=== PATIENT | male | born 1940 | race Hispanic/Latino ===

== ENCOUNTER 2018-03-24 12:33 | Inpatient (IN) | payer BC, MEDICARE ==
--- NOTE | 2018-03-24 13:18 | ED PDOC ---
Arrival/HPI - General Time Seen by Provider: 03/24/18 12:38 Historian: Patient - History of Present Illness Narrative History of Present Illness (Text): 03/24/18 13:09 Patient is a 77 year old male whose past medical history includes atrial fibrillation, and congestive heart failure, who presents to the Emergency department complaining of skin jaundice, bruising, and low blood pressure. Patient reports that he noticed abdominal ecchymosis for the past few days, and admits to taking Warfarin 3mg due to his Afib. Patient explains that he was in [place] from 03/06-03/16 and during his visit he experienced five days of dark urine, black stool, and diarrhea. He mentions that today he had normal bowel movements with normal stool color. 2 days ago he started feeling weak and saw who found his blood pressure to be 112/65. He saw today and his blood pressure was found to be low. Patient reports that he feels weak and explains that he is able to stand and walk but has difficulty going up flights of stairs. Patient reports that 6 days ago noticed that his eyes were icteric. Patient also notes that a few weeks ago he was diagnosed with gallstones via US with no infection. 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 Patient denies any abdominal pain, lightheadedness, fever, but admits to having a knee problem. 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: Time/Duration: < week Symptom Onset: Gradual Symptom Course: Unchanged Context: Home Past Medical History - Provider Review Nursing Documentation Reviewed: Yes - Infectious Disease Hx of Infectious Diseases: None - Tetanus Immunization Tetanus Immunization: Unknown - Past Medical History Past Medical History: No Previous - Cardiac Hx Pacemaker: No - Pulmonary Hx Respiratory Disorders: (SMOKES CIGARS) - Neurological Hx Paralysis: No - Hematological/Oncological Hx Blood Transfusions: No Hx Blood Transfusion Reaction: No - Musculoskeletal/Rheumatological Hx Musculoskeletal Disorders: No - Psychiatric Hx Emotional Abuse: No Hx Physical Abuse: No Hx Substance Use: No - Past Surgical History Past Surgical History: Non-Contributing - Anesthesia Hx Anesthesia Reactions: No Hx Malignant Hyperthermia: No - Suicidal Assessment Feels Threatened In Home Enviroment: No Family/Social History - Physician Review Nursing Documentation Reviewed: Yes Family/Social History: No Known Family HX Smoking Status: Current Some Days Smoker Hx Alcohol Use: Yes (OCCASIONALLY) Hx Substance Use: No Allergies/Home Meds Allergies/Adverse Reactions: Allergies aspirin Allergy (Verified 03/24/18 20:49) ANAPHYLAXIS Home Medications: Home Meds Medication Instructions Recorded Confirmed Carvedilol [Coreg] 6.25 mg PO BID 04/27/14 03/24/18 Lisinopril [Lisinopril] 5 mg PO DAILY 04/27/14 03/24/18 Warfarin Sodium [Coumadin] 3 mg PO DAILY 04/27/14 03/24/18 Review of Systems - Physician Review All systems were reviewed & negative as marked: Yes - Review of Systems Constitutional: Fatigue. absent: Fevers Gastrointestinal: absent: Abdominal Pain Musculoskeletal: Other (Knee issue) Neurological: Other ((-)lightheadedness) Physical Exam Vital Signs Reviewed: Yes Vital Signs Temp Pulse Resp BP Pulse Ox 03/24/18 18:07 81 28 H 101/70 100 03/24/18 15:45 81 19 119/76 99 03/24/18 14:23 83 18 88/63 L 98 03/24/18 13:56 97.7 F 90 18 90/49 L 99 Temperature: Afebrile Blood Pressure: Hypotensive Pulse: Regular Respiratory Rate: Normal Appearance: Positive for: Well-Appearing Mental Status: Positive for: Alert and Oriented X 3 - Systems Exam Head: Present: Atraumatic, Normocephalic Pupils: Present: PERRL Extroacular Muscles: Present: EOMI Conjunctiva: Present: Icteric Mouth: Present: Moist Mucous Membranes Neck: Present: Normal Range of Motion Respiratory/Chest: Present: Clear to Auscultation, Good Air Exchange. No: Respiratory Distress, Accessory Muscle Use Cardiovascular: Present: Normal S1, S2, Other ((+)irregularly irregular rhythm ) . No: Regular Rate and Rhythm, Murmurs Abdomen: No: Tenderness, Distention, Peritoneal Signs Rectal: Present: Occult Blood, Normal Rectal Tone, Other (brown stool). No: Hemorrhoids Back: Present: Normal Inspection Upper Extremity: Present: Normal Inspection. No: Cyanosis, Edema Lower Extremity: Present: Edema (1+ bilateral lower extremity edema) Neurological: Present: GCS=15, CN II-XII Intact, Speech Normal Skin: Present: Warm, Dry. No: Rashes, Normal Color ((+) Ecchymosis on abdominal wall on lateral side and anterior; (+)skin jaundiced) Psychiatric: Present: Alert, Oriented x 3, Normal Insight, Normal Concentration Medical Decision Making ED Course and Treatment: 03/24/18 13:22 Impression: Patient is a 77 year old male who presents to the Emergency department complaining of feeling tired and jaundice skin and eyes. Differential Diagnosis included but are not limited to: Plan: --Venous blood gas -- Chest X-ray --Abdominal US --Blood and Urine culture --Labs --blood work --Urinalysis -- Reassess and disposition Prior Visits: Notes and results from previous visits were reviewed. Progress Notes: 03/24/18 13:22 EKG shows afib at 88 BPM with LAD and normal intervals. Interpreted by me. 03/24/18 13:35 Chest X-ray shows no acute processes. Interpreted by me. 03/24/18 14:36 Discussed case with , who was made aware of the patient and agrees to take patient under his service and to admit him to ICU. Discussed case with ICU resident . 03/24/18 16:[address] Penaloza ICU attending who just evaluated pt. He recommends telemetry. BP has improved. 119/76. 03/24/2018 15:54 Abdominal Ultrasound IMPRESSION: Dilated gallbladder is identified with cholelithiasis and is otherwise unremarkable dilated CBD without choledocholithiasis. No gross pancreatic head or neck findings. Pancreatic tail obscured by overlying bowel gas. Remainder of the examination appears unremarkable. Dictator: Jimmy Curtis MD 03/24/18 16:[address] Gomes, who recommends CT abd/pelv with IV contrast at this time. He will evaluate patient on consult. I informed Dr. Xiong that patient was stable for telemetry. Dr. Maciel, ICU recommends Telemetry. Accession No. : [id number] Patient Name / ID : CHARO ROSA / [id number] PROCEDURE: CT Abdomen and Pelvis with contrast IMPRESSION: Suspect pancreatic head mass, ill-defined, roughly 3 cm. Further evaluation with multiphasic contrast-enhanced CT or MRCP/ MRI advised. Sharp cut off of distal common bile duct with dilatation of common bile duct up to 16 mm. Cholelithiasis. Distended gallbladder. Intrahepatic biliary dilatation. Nonspecific 2 cm left adrenal mass. Likely adenoma based on size criteria. Small bilateral nonspecific low-density renal masses, possibly cysts. Diverticulosis of descending and sigmoid colon. No evidence - Lab Interpretations Lab Results: 03/24/18 13:47 03/24/18 13:47 Lab Results 03/24/18 13:47: Acetaminophen < 10.0 L 03/24/18 13:47: Lactate Dehydrogenase 658, Total Creatine Kinase 171, Troponin I < 0.01 D, NT-Pro-B Natriuret Pep 2900 H 03/24/18 13:47: Sodium 140, Chloride 102, Potassium 3.3 L, Carbon Dioxide 24, Anion Gap 17, BUN 36 H, Creatinine 1.4, Est GFR ( Amer) 60, Est GFR (Non- Af Amer) 49, Random Glucose 101, Calcium 8.9, Phosphorus 2.3 L, Magnesium 2.3 H , Total Bilirubin 16.1 H, Direct Bilirubin 13.6 H, AST 180 H, ALT 196 H, Alkaline Phosphatase 437 H, Total Protein 7.6, Albumin 3.7, Globulin 3.9, Albumin/Globulin Ratio 1.0 L, Lipase 850 H 03/24/18 13:47: pO2 31, VBG pH 7.30 L, VBG pCO2 48.0, VBG HCO3 23.6, VBG Total CO2 25.1, VBG O2 Sat (Calc) 68.1 H, VBG Base Excess -3.2 L, VBG Potassium 3.2 L , Sodium 136.0, Chloride 102.0, Glucose 100, Lactate 1.2, FiO2 21.0, Venous Blood Potassium 3.2 L 03/24/18 13:47: PT 212.7 H, INR 17.60 H*, APTT 90.1 H 03/24/18 13:47: WBC 7.8, RBC 4.55, Hgb 14.6, Hct 40.2 L, MCV 88.4, MCH 32.1, MCHC 36.3, RDW 16.1 H, Plt Count 144, MPV 11.4 H, Gran % 63.8, Lymph % (Auto) 10.8 L, Pitt % (Auto) 25.0 H, Eos % (Auto) 0.3 L, Baso % (Auto) 0.1, Gran # 4.96 , Lymph # (Auto) 0.8 L, Pitt # (Auto) 1.9 H, Eos # (Auto) 0.0, Baso # (Auto) 0.01, Neutrophils % (Manual) 68, Lymphocytes % (Manual) 9 L, Monocytes % (Manual ) 22 H, Eosinophils % (Manual) 1, Platelet Evaluation Normal I have reviewed the lab results: Yes - RAD Interpretation Narrative RAD Interpretations (Text): 03/25/2018 08:34:19 CT Abdomen and Pelvis with contrast FINDINGS: LOWER THORAX: Unremarkable. LIVER: Normal size, contour and attenuation. Intra and extrahepatic biliary dilatation. No mass. GALLBLADDER AND BILE DUCTS: Gallbladder distended. Cholelithiasis. No mural thickening or pericholecystic fluid. Dilatation of the common bile duct up to 16 mm diameter. There is sharp cut off of the distal common bile duct at the level of the ampulla. Possible pancreatic neoplasm versus ampullary neoplasm versus stricture. Further evaluation advised with MRCP/MRI PANCREAS: Suspect pancreatic head mass 3 cm. Recommend further evaluation with multiphasic contrast enhanced CT or gadolinium enhanced MRI. No pancreatic ductal dilatation. SPLEEN: Unremarkable. ADRENALS: 2 cm left adrenal mass, 34 Hounsfield units attenuation postcontrast. Nonspecific. Likely adrenal adenoma based on size criteria alone. No right adrenal mass. KIDNEYS AND URETERS: Small bilateral nonspecific low-attenuation masses, possibly cysts but too small to characterize. No calculus or hydronephrosis. VASCULATURE: Unremarkable. No aortic aneurysm. BOWEL: Extensive diverticulosis of the descending and sigmoid colon without evidence of diverticulitis. No bowel obstruction. No other abnormal bowel loops. APPENDIX: Normal appendix. PERITONEUM: Unremarkable. No free fluid. No free air. LYMPH NODES: Unremarkable. No enlarged lymph nodes. Of diverticulitis. Preliminary interpretation of this examination was reported by [email or web address] at 8:22 p.m. on 03/24/2018. There is concurrence of this report with the preliminary interpretation. BLADDER: Unremarkable. REPRODUCTIVE: Normal prostate BONES: No acute fracture. OTHER FINDINGS: None. IMPRESSION: Suspect pancreatic head mass, ill-defined, roughly 3 cm. Further evaluation with multiphasic contrast-enhanced CT or MRCP/ MRI advised. Sharp cut off of distal common bile duct with dilatation of common bile duct up to 16 mm. Cholelithiasis. Distended gallbladder. Intrahepatic biliary dilatation. Nonspecific 2 cm left adrenal mass. Likely adenoma based on size criteria. Small bilateral nonspecific low-density renal masses, possibly cysts. Diverticulosis of descending and sigmoid colon. No evidence Radiology Orders: 03/24/18 ABDOMEN COMPLETE [US] Stat 03/24/18 13:11 CHEST PORTABLE [RAD] Stat Parts Inspector: ED Physician, Radiologist - EKG Interpretation Interpreted by ED Physician: Yes Type: 12 lead EKG - Medication Orders Current Medication Orders: Sodium Chloride (Sodium Chloride 0.9%) 1,000 mls @ 100 mls/hr IV .Q10H [facility] Last Admin: 03/25/18 09:47 Dose: Ondansetron HCl (Zofran Inj) 4 mg IVP Q4H PRN PRN Reason: Nausea/Vomiting Pantoprazole Sodium (Protonix Inj) 40 mg IVP Q12 [facility] Last Admin: 03/25/18 10:22 Dose: 40 mg IVP Administration Document 03/25/18 10:22 CD (Rec: 03/25/18 10:22 CD [id number]) Charges for Administration # of IVP Administrations 1 Discontinued Medications Alprazolam (Xanax) 0.5 mg PO ONCE ONE PRN Reason: Protocol Stop: 03/25/18 09:01 Last Admin: 03/25/18 09:11 Dose: 0.5 mg Behavioural Document 03/25/18 09:11 CD (Rec: 03/25/18 09:11 CD [id number]) Maintenance Maintenance Dose Yes Re-Assess: Reassess Psych Meds Document 03/25/18 10:11 CD (Rec: 03/25/18 10:22 CD [id number]) Reassess Psych Med Effective Sodium Chloride (Sodium Chloride 0.9%) 500 mls @ 100 mls/hr IV .Q5H [facility] Last Admin: 03/25/18 00:06 Dose: Sodium Chloride (Sodium Chloride 0.9%) 500 mls @ 999 mls/hr IV .Q31M STA Stop: 03/24/18 14:57 Last Admin: 03/24/18 13:50 Dose: 999 mls/hr eMAR Start Stop Document 03/24/18 13:50 OCS (Rec: 03/24/18 15:42 OCS [id number]) Intravenous Solution Start Date 03/24/18 Start Time 13:50 End Date 03/24/18 End time 14:20 Total Infusion Time 30 Phytonadione 10 mg/ Sodium (Chloride) 51 mls @ 100 mls/hr IV ONCE ONE Stop: 03/24/18 15:24 Last Admin: 03/24/18 15:43 Dose: 100 mls/hr eMAR Start Stop Document 03/24/18 15:43 OCS (Rec: 03/24/18 15:43 OCS [id number]) Intravenous Solution Start Date 03/24/18 Start Time 15:43 End Date 03/24/18 End time 16:13 Total Infusion Time 30 Pantoprazole Sodium (Protonix Inj) 80 mg IVP STAT STA Stop: 03/24/18 15:12 Last Admin: 03/24/18 15:46 Dose: 80 mg IVP Administration Document 03/24/18 15:46 OCS (Rec: 03/24/18 15:46 OCS [id number]) Charges for Administration # of IVP Administrations 1 Potassium Chloride (K-Dur 20 Meq Er Tab) 40 meq PO STAT STA Stop: 03/24/18 14:15 Last Admin: 03/24/18 15:45 Dose: 40 meq - Scribe Statement The provider has reviewed the documentation as recorded by the Mary Tavarez Provider Scribe Attestation: All medical record entries made by the Mary were at my direction and personally dictated by me. I have reviewed the chart and agree that the record accurately reflects my personal performance of the history, physical exam, medical decision making, and the department course for this patient. I have also personally directed, reviewed, and agree with the discharge instructions and disposition. Disposition/Present on Arrival - Present on Arrival Any Indicators Present on Arrival: No History of DVT/PE: No History of Uncontrolled Diabetes: No Urinary Catheter: No History Surgical Site Infection Following: None - Disposition Have Diagnosis and Disposition been Completed?: Yes Diagnosis: Jaundice, GI bleed, Congestive heart failure Disposition: HOSPITALIZED Disposition Time: 14:00 Patient Plan: Admission Condition: GUARDED
[2018-03-24 14:03] LABS: VENOUS BLOOD GAS BASE EXCESS -3.2 mmol/L (0.0-2.0); VENOUS BLOOD GAS PO2 31 mm/Hg (30-55)
[2018-03-24 14:11] LABS: ALBUMIN 3.7 g/dL (3.0-4.8); BILIRUBIN,DIRECT 13.6 mg/dL (0.0-0.4); CALCIUM 8.9 mg/dL (8.4-10.5)
[2018-03-24] MEDS ORDERED: Potassium Chloride 20 mEq ER Tab PO STA (14:14)
[2018-03-24 14:16] LABS: BASO # 0.01 K/mm3 (0.0-2.0); BASO % 0.1 % (0.0-3.0); EOS % 0.3 % (1.5-5.0); GRAN # 4.96 (1.4-6.5); GRAN % 63.8 % (50.0-68.0); HEMOGLOBIN 14.6 g/dL (14.0-18.0); LYMPH # 0.8 (1.2-3.4); LYMPH % 10.8 % (22.0-35.0); MEAN CELL VOLUME 88.4 fl (80.0-105.0); MEAN CORPUSCULAR HEMOGLOBIN 32.1 pg (25.0-35.0); MEAN CORPUSCULAR HGB CONC 36.3 g/dl (31.0-37.0); MEAN PLATELET VOLUME 11.4 fl (7.0-11.0); MONO # 1.9 (0.1-0.6); PLATELET COUNT 144 10^3/uL (120.0-450.0); RBC 4.55 10^6/uL (3.5-6.1); RED CELL DISTRIBUTION WIDTH 16.1 % (11.5-14.5); WHITE BLOOD COUNT 7.8 10^3/ul (4.5-11.0)
[2018-03-24 14:18] LABS: PARTIAL THROMBOPLASTIN TIME 90.1 Seconds (25.1-36.5); PROTHROMBIN TIME 212.7 SECONDS (9.4-12.5)
[2018-03-24 14:19] LABS: INR 17.6 (0.93-1.08)
[2018-03-24] MEDS ORDERED: Phytonadione 10 MG in Sodium Chloride 0.9% 50 ML IV ONE ×2 (14:22→14:54)
[2018-03-24] MEDS ORDERED: Sodium Chloride 0.9% 500 ML IV STA (14:27)
[2018-03-24 14:42] LABS: EOSINOPHIL 1 % (0.0-3.0); LYMPHOCYTE 9 % (22.0-35.0); MONOCYTE 22 % (1.0-6.0); NEUTROPHIL 68 % (50.0-70.0)
[2018-03-24 14:43] LABS: PLATELET ESTIMATE NORMAL (NORMAL)
--- NOTE | 2018-03-24 15:30 | CP.PCM.CON ---
<Elaina Palma - Last Filed: 03/24/18 17:35> History of Present Illness - History of Present Illness History of Present Illness: PGY-2 for . ICU consult: GI bleed, hematuria, jaundice Mr Lambert, 77M, PMHx a-fib on comadin, came in for GI bleed, hematuria, jaundice, brusing in belly and generalize weakness. Pt and flew to [place] on 03/06/18 to 03/16/18 (last Thursday). The last time he checked his INR was in January, prior to the trip. During the trip, he started to have diarrhea, dark color stool. After he flew back from the trip, weakness progresses and he felt SOB on walking up a flight of stairs. He was noticed that he became jaundice. He continued to have melanoic diarrhea, now with bright red urine. His appetite decreases and U/O decreases. Dnies recent antibiotics. (+) Took NSAIDs/Tylenol 4 pills in past 3 days. 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 drinks 3-4 gin/wine per week Denies drug All - Aspirin Med - reviewed Past Patient History - Infectious Disease Hx of Infectious Diseases: None - Tetanus Immunizations Tetanus Immunization: Unknown - Past Social History Smoking Status: Current Some Days Smoker - CARDIAC Hx Pacemaker: No - PULMONARY Hx Respiratory Disorders: (SMOKES CIGARS) - NEUROLOGICAL Hx Paralysis: No - HEMATOLOGICAL/ONCOLOGICAL Hx Blood Transfusions: No Hx Blood Transfusion Reaction: No - MUSCULOSKELETAL/RHEUMATOLOGICAL Hx Musculoskeletal Disorders: No - GASTROINTESTINAL Hx Gall Bladder Disease: Yes - PSYCHIATRIC Hx Emotional Abuse: No Hx Physical Abuse: No Hx Substance Use: No - SURGICAL HISTORY Hx Surgeries: No - ANESTHESIA Hx Anesthesia Reactions: No Hx Malignant Hyperthermia: No Meds Allergies/Adverse Reactions: Allergies Allergy/AdvReac Type Severity Reaction Status Date / Time aspirin Allergy ANAPHYLAXIS Verified 03/24/18 17:10 - Medications Medications: Current Medications Sodium Chloride (Sodium Chloride 0.9%) 500 mls @ 100 mls/hr IV .Q5H [facility] Physical Exam - Constitutional Appears: No Acute Distress - Head Exam Head Exam: ATRAUMATIC, NORMAL INSPECTION, NORMOCEPHALIC - Eye Exam Eye Exam: EOMI, Normal appearance, PERRL, Scleral icterus Pupil Exam: NORMAL ACCOMODATION - ENT Exam ENT Exam: Mucous Membranes Moist - Neck Exam Neck exam: Positive for: Normal Inspection Additional comments: excoriation whaley - Respiratory Exam Respiratory Exam: Decreased Breath Sounds (b/l lung bases), Clear to Auscultation Bilateral, NORMAL BREATHING PATTERN. absent: Rales, Rhonchi, Wheezes - Cardiovascular Exam Cardiovascular Exam: Irregular Rhythm, +S1, +S2. absent: Bradycardia, Tachycardia - GI/Abdominal Exam GI & Abdominal Exam: Normal Bowel Sounds, Soft. absent: Distended, Firm, Guarding, Rebound, Rigid, Tenderness - Rectal Exam Additional comments: blood in vaginal area, small amount - Extremities Exam Extremities exam: Positive for: normal capillary refill, pedal edema (2+ pitting with stasis dermatitis), pedal pulses present. Negative for: calf tenderness - Back Exam Additional comments: ecchymosis L flank, lateral, posterior, mid sacral - Neurological Exam Neurological exam: Alert, CN II-XII Intact, Oriented x3 - Psychiatric Exam Psychiatric exam: Normal Affect, Normal Mood - Skin Skin Exam: Dry, Warm Additional comments: ecchymosis (see back exam) Results - Vital Signs Recent Vital Signs: Last Vital Signs Temp 97.7 F 03/24/18 13:56 Pulse 83 03/24/18 14:23 Resp 18 03/24/18 14:23 BP 88/63 L 03/24/18 14:23 Pulse Ox 98 03/24/18 14:23 - Labs Result Diagrams: 03/24/18 13:47 03/24/18 13:47 Assessment & Plan - Assessment and Plan (Free Text) Plan: Supratherapeutic INR at 17.6 GI bleed, upper vs lower Hematuria Hyper-conjugated bilirubinemia @ 13.6 - due to bleeding AND/OR cholestatic picture? Transaminitis Pro-BNP 2900 Lipase 850, Doubt pancreatitis - does not meet diagnostic criteria MIKEY (Baseline creatinin 1) Hx A-fib Cardiomypathy (EF 20-15% in 2014) CHF exacerbation likely from acute blood loss and increase demand Neuro - AAOx3, maintain nomothermia Pulm - BNP elevated likely CHF exacerbation. Sa 100 on RA Card - hold coumadin. 10 vitamin K. 2 FFP at a time. Recheck Coags after @ 2FFP. transfuse FFP again as needed Will get echocardiogram GI - NPO. Defer decision CT a/p to Dr. Gomes; defer Decision re: protonix gtt vs bid per GI doctor Abd u/s: dilated gallbladder with cholelithiasis. Dilated CBD 10.2mm. - strict i/o. Replete electrolyte as needed. Endo - maintain glucose 140-180 Heme - see card section ID - no active issue pvx - SCD Pt will be admitted to telemetry. Pt does not meet ICU admission requirement: Vital sign stable, no active bleeding, Hb at baseline. Please re-consult as needed. s/r/d/w Dr. Pham <Jimmy Pham - Last Filed: 03/24/18 17:59> Meds - Medications Medications: Current Medications Sodium Chloride (Sodium Chloride 0.9%) 500 mls @ 100 mls/hr IV .Q5H [facility] Last Admin: 03/24/18 15:50 Dose: 100 mls/hr Results - Vital Signs Recent Vital Signs: Last Vital Signs Temp 97.7 F 03/24/18 13:56 Pulse 81 03/24/18 15:45 Resp 19 03/24/18 15:45 BP 119/76 03/24/18 15:45 Pulse Ox 99 03/24/18 15:45 - Labs Result Diagrams: 03/24/18 13:47 03/24/18 13:47 Labs: Laboratory Results - last 24 hr 03/24/18 17:07 Urine Color Dark yellow Urine Appearance Sl cloudy Urine pH 6.0 Ur Specific [place] 1.010 Urine Protein Trace H Urine Glucose (UA) Negative Urine Ketones Negative Urine Blood Negative Urine Nitrate Negative Urine Bilirubin Large H Urine Urobilinogen 0.2 Ur Leukocyte Esterase Negative Urine RBC Negative Urine WBC 2 - 5 Ur Epithelial Cells 3 - 4 Amorphous Sediment Few Urine Bacteria Few Attending/Attestation - Attestation I have personally seen and examined this patient.: Yes I have fully participated in the care of the patient.: Yes I have reviewed all pertinent clinical information: Yes Notes (Text): 03/24/18 17:50 The patient was seen and examined at the bedside. Patient care was discussed with resident Medical records, lab studies were reviewed and management issues were discussed and formulated. Agree with above treatment plans as outlined in 's note with addition of the following: GI bleed \ Coumadin toxicity \ MIKEY \ Afib \ Systolic CHF \ Elevated LFT \ Elevated Lipase -hemodynamic monitoring to maintain MAP>65; currently stable ; f\u repeat Echo -o2 supplementation to maintain Spo2>90 Pao2>60; currently comfortable on room air , speaking full sentences saturating 100% -f\u Bun\Cr and U\o; continue gentle hydration -GI team eval; continue PPi IV ; consider CT A\P -f\u serial LFT; hepatitis panel; f\u Lipase; pt has no abdominal pain on exam -f\u serial H\H ; Hb on admission 14.6 -vitamin K given in ED; transfuse 2 FFP and repeat INR; monitor for fluid overload; consider PCC -NPO diet pending GI eval and aspiration precautions -DVT \ PUD prophylaxis Pt remains hemodynamically stable when examined and is comfortable on room air in no distress. No signs of active acute bleed noted. Pt will not benefit from ICU level of care at this time. Please reconsult if condition changes or necessary CCM time 41
[2018-03-24] MEDS: Sodium Chloride 0.9% 500 ML IV SCH ×2 (15:50→18:50)
--- NOTE | 2018-03-24 15:55 | US ---
HISTORY: h/o GS now jaundice COMPARISON: None. TECHNIQUE: Sonographic evaluation of the abdomen. FINDINGS: LIVER: Measures 15.0 cm. Normal echogenicity of the liver parenchyma. No mass. No intrahepatic bile duct dilatation. GALLBLADDER: Distended but thin walled gallbladder without pericholecystic fluid collection. There is no sonographic Szymanski sign but calculi are seen in the lumen near the neck. Clinically correlate for potential cholecystitis though nothing rather than gallbladder distention is otherwise demonstrated. COMMON BILE DUCT: Measures 10.2 mm. No choledocholithiasis appreciated. PANCREAS: No pancreatic head or neck mass is seen in the bodies unremarkable but the tail is obscured by overlying bowel gas. RIGHT KIDNEY: Measures 10.8cm. Normal echogenicity. No calculus, mass, or hydronephrosis. LEFT KIDNEY: Measures 11.2cm. Normal echogenicity. No calculus, mass, or hydronephrosis. SPLEEN: Normal in size and contour measuring 10.7 cm greatest dimension. No mass. AORTA: No aneurysmal dilatation. IVC: Unremarkable. OTHER FINDINGS: None. IMPRESSION: Dilated gallbladder is identified with cholelithiasis and is otherwise unremarkableDilated CBD without choledocholithiasis. No gross pancreatic head or neck findings. Pancreatic tail obscured by overlying bowel gas. Remainder of the examination appears unremarkable.
[2018-03-24 16:52] LABS: B-TYPE NATRIURETIC PEPTIDE 2900 pg/mL (0-450); TROPONIN I < 0.01 ng/mL
[2018-03-24 17:15] LABS: URINE BILIRUBIN LARGE (NEGATIVE); URINE BLOOD NEGATIVE (NEGATIVE); URINE GLUCOSE (UA) NEGATIVE (NEGATIVE); URINE LEUKOCYTE ESTERASE NEGATIVE Leu/uL (NEGATIVE); URINE PROTEIN TRACE mg/dL (<30 mg/dL); URINE UROBILINOGEN 0.2 E.U./dL (<1 E.U./dL)
[2018-03-24 17:26] LABS: URINE APPEARANCE SL CLOUDY (CLEAR); URINE COLOR DARK YELLOW (YELLOW)
[2018-03-24 17:31] LABS: URINE AMORPHOUS SEDIMENT FEW; URINE BACTERIA FEW (NEG); URINE RBC NEGATIVE /hpf (0-2)
--- NOTE | 2018-03-24 17:59 | RAD ---
HISTORY: Sepsis Patient COMPARISON: 04/24/2014. FINDINGS: LUNGS: The lungs are well inflated and clear. PLEURA: No significant pleural effusion identified, no pneumothorax apparent. CARDIOVASCULAR: Normal. OSSEOUS STRUCTURES: No significant abnormalities. VISUALIZED UPPER ABDOMEN: Normal. OTHER FINDINGS: None. IMPRESSION: No active pulmonary disease.
--- NOTE | 2018-03-24 18:20 | CARD ---
APPROVED REPORT EKG Measurement Heart [id number] <Conclusion> Atrial fibrillation Left axis deviation Low voltage QRS Inferior infarct, age undetermined Possible Anterolateral infarct, age undetermined Abnormal ECG
[2018-03-24 21:17] VITALS: BMI 41.9
[2018-03-24 22:16] LABS: HEMOGLOBIN 13.8 g/dL (14.0-18.0); MEAN CELL VOLUME 88.6 fl (80.0-105.0); MEAN CORPUSCULAR HEMOGLOBIN 32.7 pg (25.0-35.0); MEAN CORPUSCULAR HGB CONC 36.9 g/dl (31.0-37.0); MEAN PLATELET VOLUME 11.3 fl (7.0-11.0); RBC 4.22 10^6/uL (3.5-6.1); RED CELL DISTRIBUTION WIDTH 16.2 % (11.5-14.5); WHITE BLOOD COUNT 8.2 10^3/ul (4.5-11.0)
[2018-03-24] MEDS: Sodium Chloride 0.9% 1,000 ML IV SCH (23:35)
[2018-03-25] MEDS: Sodium Chloride 0.9% 500 ML IV SCH (00:06)
[2018-03-25 06:18] VITALS: RESP 18; O2SAT 96
[2018-03-25 08:03] LABS: BASO # 0.01 K/mm3 (0.0-2.0); BASO % 0.1 % (0.0-3.0); EOS % 0.5 % (1.5-5.0); GRAN # 4.96 (1.4-6.5); GRAN % 57.9 % (50.0-68.0); HEMOGLOBIN 13.4 g/dL (14.0-18.0); LYMPH % 11.9 % (22.0-35.0); MEAN CELL VOLUME 87.8 fl (80.0-105.0); MEAN CORPUSCULAR HEMOGLOBIN 32.1 pg (25.0-35.0); MEAN CORPUSCULAR HGB CONC 36.6 g/dl (31.0-37.0); MEAN PLATELET VOLUME 11.7 fl (7.0-11.0); MONO # 2.5 (0.1-0.6); MONO % 29.6 % (1.0-6.0); RBC 4.17 10^6/uL (3.5-6.1); RED CELL DISTRIBUTION WIDTH 16.1 % (11.5-14.5); WHITE BLOOD COUNT 8.6 10^3/ul (4.5-11.0)
[2018-03-25 08:10] LABS: INR 1.44 (0.93-1.08); PROTHROMBIN TIME 16.7 SECONDS (9.4-12.5)
--- NOTE | 2018-03-25 08:35 | CT ---
PROCEDURE: CT Abdomen and Pelvis with contrast HISTORY: acute jaundice COMPARISON: None. TECHNIQUE: Contrast dose: 146 cc Omnipaque 350 Radiation dose: Total exam DLP = 1194.61 mGy-cm. This CT exam was performed using one or more of the following dose reduction techniques: Automated exposure control, adjustment of the mA and/or kV according to patient size, and/or use of iterative reconstruction technique. FINDINGS: LOWER THORAX: Unremarkable. LIVER: Normal size, contour and attenuation. Intra and extrahepatic biliary dilatation. No mass. GALLBLADDER AND BILE DUCTS: Gallbladder distended. Cholelithiasis. No mural thickening or pericholecystic fluid. Dilatation of the common bile duct up to 16 mm diameter. There is sharp cut off of the distal common bile duct at the level of the ampulla. Possible pancreatic neoplasm versus ampullary neoplasm versus stricture. Further evaluation advised with MRCP/MRI PANCREAS: Suspect pancreatic head mass 3 cm. Recommend further evaluation with multiphasic contrast enhanced CT or gadolinium enhanced MRI. No pancreatic ductal dilatation. SPLEEN: Unremarkable. ADRENALS: 2 cm left adrenal mass, 34 Hounsfield units attenuation postcontrast. Nonspecific. Likely adrenal adenoma based on size criteria alone. No right adrenal mass. KIDNEYS AND URETERS: Small bilateral nonspecific low-attenuation masses, possibly cysts but too small to characterize. No calculus or hydronephrosis. VASCULATURE: Unremarkable. No aortic aneurysm. BOWEL: Extensive diverticulosis of the descending and sigmoid colon without evidence of diverticulitis. No bowel obstruction. No other abnormal bowel loops. APPENDIX: Normal appendix. PERITONEUM: Unremarkable. No free fluid. No free air. LYMPH NODES: Unremarkable. No enlarged lymph nodes. Of diverticulitis. Preliminary interpretation of this examination was reported by [facility] at 8:22 p.m. on 03/24/2018. There is concurrence of this report with the preliminary interpretation. BLADDER: Unremarkable. REPRODUCTIVE: Normal prostate BONES: No acute fracture. OTHER FINDINGS: None. IMPRESSION: Suspect pancreatic head mass, ill-defined, roughly 3 cm. Further evaluation with multiphasic contrast-enhanced CT or MRCP/ MRI advised. Sharp cut off of distal common bile duct with dilatation of common bile duct up to 16 mm. Cholelithiasis. Distended gallbladder. Intrahepatic biliary dilatation. Nonspecific 2 cm left adrenal mass. Likely adenoma based on size criteria. Small bilateral nonspecific low-density renal masses, possibly cysts. Diverticulosis of descending and sigmoid colon. No evidence
[2018-03-25 08:46] LABS: ALBUMIN 3.6 g/dL (3.0-4.8); ALT/SGPT 182 U/L (7-56); AST/SGOT 174 U/L (17-59); BLOOD UREA NITROGEN 27 mg/dL (7-21); CALCIUM 8.9 mg/dL (8.4-10.5); GFR AFRICAN-AMERICAN > 60; GFR NON-AFRICAN AMERICAN > 60
[2018-03-25] MEDS: Sodium Chloride 0.9% 1,000 ML IV SCH (09:47)
--- NOTE | 2018-03-25 11:14 | MRI ---
PROCEDURE: Magnetic Resonance Cholangiopancreatography HISTORY: COMPARISON: 03/24/2018. TECHNIQUE: Multiplanar, multisequence MR images of the abdomen were obtained, including heavily T2 weighted MRCP images of the biliary system. Rotating maximum intensity projection images of the biliary system were generated. FINDINGS: MRCP: Re- demonstration of severe intra and extrahepatic biliary dilatation with common bile duct measuring 17 millimeters in the dakota hepatis. Abrupt transition with lack of visualization of the distal common bile duct extending to the duodenum. LIVER: Unremarkable. GALLBLADDER: Cholelithiasis. SPLEEN: Unremarkable. PANCREAS: No gross pancreatic mass or duct dilatation. ADRENALS: Unremarkable. KIDNEYS: Unremarkable. AORTA: No aneurysm. ASCITES: None. OTHER FINDINGS: None. IMPRESSION: Re- demonstration of severe intra and extrahepatic biliary dilatation with common bile duct measuring 17 millimeters in the dakota hepatis. Abrupt transition with lack of visualization of the distal common bile duct extending to the duodenum. No gross evidence of pancreatic mass. Findings may represent postinflammatory stricture, however, pancreatic mass or biliary mass should be excluded and correlation with ERCP is recommended.
--- NOTE | 2018-03-25 11:14 | HP ---
CHIEF COMPLAINT AND HISTORY OF PRESENT ILLNESS: This is a 77-year-old male, who is coming into the hospital with a past medical history of atrial fibrillation complaining of yellowing of his eyes, black stools, dark urine. The patient has a history of atrial fibrillation and has been on Coumadin. He had gone to see his primary care doctor and his blood pressure was low, so he is advised to come into the hospital for further evaluation. The patient said that 6 days ago, he had gone to Dr. Wallace's office with his and she had noticed that he had jaundice in his eyes. The patient had also gone to [place] about 2 weeks ago and this is where he started noticing the dark urine and black stool. He is also having diarrhea. The patient denies any chest pain. No shortness of breath. No nausea. No abdominal pain. No back pain. No dysuria or frequency. No nocturia. He says that he is able to go up flight of stairs, but he gets short of breath. REVIEW OF SYMPTOMS: All other review of symptoms are within normal limits except that was mentioned. ALLERGIES: TO ASPIRIN. HOME MEDICATIONS: Carvedilol, lisinopril, Coumadin. SOCIAL HISTORY: He was a smoker. He worked in an [employer] company, but he is retired. He drinks alcohol occasionally. He drinks 3-4 gin and wine per week. FAMILY HISTORY: Father had lung cancer and at 65. Mother had coronary artery disease and at 73. PAST MEDICAL HISTORY: Atrial fibrillation, obese with a BMI of 42, CHF with EF of 20-25%. PHYSICAL EXAMINATION: VITAL SIGNS: Temperature is 97.5, pulse of 76, blood pressure is 110/76, respirations 18, O2 saturation is 96%. Height is 5 feet 9. Weight is 284 pounds. BMI is 41.9. GENERAL: The patient lying in bed, uncomfortable, and in no acute distress. HEENT: Atraumatic and normocephalic. Icteric sclerae. Moist mucosa. [place] conjunctivae. No oral lesions. NECK: No JVD, anterior and posterior adenopathy, thyromegaly, or bruits. CARDIOVASCULAR: S1 and S2 regular. No murmur, rubs, or gallop. LUNGS: Clear to auscultation bilaterally. No wheezes, rales, or rhonchi. ABDOMEN: Bowel sounds are positive. Soft, nontender and nondistended. No hepatosplenomegaly. No rebound and no guarding EXTREMITIES: No cyanosis, clubbing, or edema. NEUROLOGIC: No facial asymmetry. Tongue is midline. No uvula deviation. Power is 5/5 upper extremity and lower extremity. Sensation intact in upper extremity and lower extremity. PSYCHIATRIC: He is awake, alert and oriented x3. No anxiety or depression. He has normal affect. GENITOURINARY: No CVA tenderness. VASCULAR: 2+ pulses in the carotid pulses and pedal pulses. SKIN: No erythema or nodules. Yellowing of the skin. SPINE: Shows normal curvature. LABORATORY DATA: White count of 7.8, hemoglobin 14.6, platelet count is 144. His INR is 17, repeat is 1.4. His chemistry shows the potassium is 3.3, his phosphorus is 2.3, his magnesium is 2.3, his AST is 180, ALT is 196, alk phos of 437, his proBNP is 2900. Urine shows blood that is negative, nitrites are negative, bilirubin is large. Toxicology shows a Tylenol level less than 10. Total bilirubin is 16, direct is 13.6. His chest x-ray shows no infiltrates. EKG shows atrial fibrillation with heart rate of 88, low-voltage QRS. Abdominal ultrasound done shows dilated gallbladder with cholelithiasis. ASSESSMENT: 1. Obstructive jaundice. 2. Hypokalemia. 3. Hypophosphatemia. 4. Heme-positive stool. 5. Coagulopathy secondary to Coumadin toxicity. 6. Congestive heart failure, chronic, secondary to systolic dysfunction with ejection fraction of 20-25%. 7. Obese with a body mass index of 42. PLAN: The patient is going to be admitted to the hospital. He has elevated bilirubin. The patient is jaundiced. The etiology is unknown at this point. He had a CAT scan done, the results are pending. The patient was given potassium because of the hypokalemia. The patient was given vitamin K and FFP. His INR is subtherapeutic. He has heme positive stool, so I will hold off on further anticoagulation and antiplatelet therapy. The patient is on Protonix. I did speak to Dr. Gomes regarding the case. The patient has an MRCP that has been ordered as well as a repeat echo. The patient is going to be seen by Dr. Gomes and Dr. Wallace. We will continue to follow closely. The patient does have a significantly enlarged gallbladder. Randal Thompson MD
[2018-03-25 11:31] VITALS: BP 108/76; TEMP 97.8
--- NOTE | 2018-03-25 15:21 | CON ---
DATE: 03/25/2018 CONSULTATION IN GASTROENTEROLOGY REQUESTING PHYSICIAN: Randal Thompson MD. REASON FOR CONSULT: I have been asked to see this 77-year-old male with known history of atrial fibrillation, gallstones, who is admitted to the hospital with jaundice and increasing weakness. He denies any abdominal pain. The patient is on Coumadin for atrial fibrillation. The patient recently returned from a trip to [place] where during the trip he noted hematuria and dark BMs. The patient was noted by his 's oncologist to be jaundiced. He was advised medical followup. He has a history of congestive heart failure with an ejection fraction of 20-25%. Ultrasound of the abdomen performed in the emergency room revealed gallstones and a distended gallbladder. PAST MEDICAL HISTORY: As above. Again, he has a history of atrial fibrillation, congestive heart failure and gallstones. SOCIAL HISTORY: The patient smokes cigars intermittently. He consumes wine and gin on a social basis. FAMILY HISTORY: Notable for diabetes mellitus, lung cancer. REVIEW OF SYSTEMS: Notable for generalized weakness, jaundice and easy bruising. PHYSICAL EXAMINATION: GENERAL: Middle-aged male, appearing icteric, in no acute distress. VITAL SIGNS: Reveal temperature of 97.5, blood pressure 110/76, heart rate 76. HEENT: Reveals sclerae to be icteric. Conjunctivae pink. NECK: Supple. CHEST: Reveals lungs to be clear. HEART: Reveals regular rate and rhythm. ABDOMEN: Obese, soft, nontender. EXTREMITIES: Show no edema. LABORATORY DATA: Reveal on admission to the hospital, white blood cell count of 7.8, hemoglobin of 14.6. Chemistries reveal total bilirubin of 16.1, AST 180, ALT 196, alkaline phosphatase of 437, lipase of 850. CT scan of the abdomen and pelvis shows a dilated common bile duct with abrupt cutoff at the level of the ampulla with suggestion of a 3 cm mass in the head of the pancreas. IMPRESSION: 1. Obstructive jaundice, most likely secondary to a mass in the head of the pancreas. 2. Severe coagulopathy with a PT of 212 and an INR 17.6, which this morning has corrected to 16.7 with an INR of 1.44. RECOMMENDATIONS: 1. MRCP. 2. The patient will need ERCP, EUS and biliary drainage. Jimy Gomes MD [facility] # [id number]
[2018-03-25 15:30] VITALS: PULSE 82
--- NOTE | 2018-03-25 16:37 | CP.PCM.CON ---
<Imani Mcgarry - Last Filed: 03/25/18 16:36> History of Present Illness - History of Present Illness History of Present Illness: Seen and examined at bedside, chart reviewed. Request for GI consult as per Dr. Gomes for ERCP. HPI: This is a 77 morbidly obese male with a PMH or Atrial Fibrillation on Coumadin, CHF, EF or 20-25%, Gallstones came to the ER for c/o feeling weak and jaundice, the patient was noted by the 's oncologist for appearing jaundice and recommended evaluation. Patient also recently returned from [place] and had hematuria and dark BM during his trip. He was found to have an INF of 17 on admission s/p FFP. On evaluation in the ER he had an abdominal US and found to have multiple gallstones and distended gallbladder. MRCP was done on this admission and noted to have intra and extrahepatic dilation with CBD 17mm in the dakota hepatis. No pancreatic mass but findings may represent post inflammatory stricture but pancreatic mass or biliary mass should be excluded. Recommend ERCP. Currently he denies N/V, abdominal pain, No sob or CP. PMH: Atrial Fibrillation, CHF, poor EF 20-25%, morbildy obese,gallstones Allergies: aspirin MEDS: reviewed as per MAR FHX: noncontributory at this time Social HX: smokes cigars, drink wine rudi gin socially, no illicit drugs ROS: systems reviewed with positive findings, see HPI Past Patient History - Infectious Disease Hx of Infectious Diseases: None - Tetanus Immunizations Tetanus Immunization: Unknown - Past Social History Smoking Status: Former Smoker - CARDIAC Hx Cardiac Disorders: Yes (CAD) Hx Cardia Arrhythmia: Yes Hx Circulatory Problems: Yes Hx Congestive Heart Failure: Yes Hx Hypercholesterolemia: Yes Hx Hypertension: Yes Hx Pacemaker: No - PULMONARY Hx Respiratory Disorders: Yes (SMOKED CIGARS 10/YR) - NEUROLOGICAL Hx Neurological Disorder: No - HEENT Hx HEENT Problems: No - RENAL Hx Chronic Kidney Disease: No - ENDOCRINE/METABOLIC Hx Endocrine Disorders: No - HEMATOLOGICAL/ONCOLOGICAL Hx Blood Disorders: No - INTEGUMENTARY Hx Dermatological Problems: Yes (JAUNDICED 03-24-18) Other/Comment: 03-24-18 MULTIPLE BRUISING,BILATERAL LE DARKENED BROWN SKIN DISCOLORATION EDEMA +1,SKIN TIGHT. - MUSCULOSKELETAL/RHEUMATOLOGICAL Hx Musculoskeletal Disorders: No Hx Falls: No - GASTROINTESTINAL Hx Gastrointestinal Disorders: Yes (BLOODY STOOLS) Hx Gall Bladder Disease: Yes (GALLSTONES,CHOLELITHIASIS) - GENITOURINARY/GYNECOLOGICAL Hx Genitourinary Disorders: Yes Hx Hematuria: Yes (03-24-18) - PSYCHIATRIC Hx Psychophysiologic Disorder: No Hx Emotional Abuse: No Hx Physical Abuse: No Hx Substance Use: No - SURGICAL HISTORY Hx Surgeries: Yes (CARD CATH.) - ANESTHESIA Hx Anesthesia Reactions: No Hx Malignant Hyperthermia: No Meds Allergies/Adverse Reactions: Allergies Allergy/AdvReac Type Severity Reaction Status Date / Time aspirin Allergy ANAPHYLAXIS Verified 03/24/18 20:49 - Medications Medications: Current Medications Sodium Chloride (Sodium Chloride 0.9%) 1,000 mls @ 100 mls/hr IV .Q10H [facility] Last Admin: 03/25/18 09:47 Dose: Not Given Ondansetron HCl (Zofran Inj) 4 mg IVP Q4H PRN PRN Reason: Nausea/Vomiting Pantoprazole Sodium (Protonix Inj) 40 mg IVP Q12 [facility] Last Admin: 03/25/18 10:22 Dose: 40 mg Physical Exam - Constitutional Appears: No Acute Distress - Head Exam Head Exam: NORMOCEPHALIC - Eye Exam Eye Exam: PERRL, Scleral icterus - ENT Exam ENT Exam: Mucous Membranes Moist - Neck Exam Neck exam: Positive for: Normal Inspection - Respiratory Exam Respiratory Exam: NORMAL BREATHING PATTERN. absent: Respiratory Distress - Cardiovascular Exam Cardiovascular Exam: +S1, +S2 - GI/Abdominal Exam GI & Abdominal Exam: Distended (obese), Normal Bowel Sounds, Soft. absent: Guarding, Rebound, Tenderness - Extremities Exam Extremities exam: Positive for: pedal edema (scaly and dry, skin intact), pedal pulses present. Negative for: calf tenderness - Neurological Exam Neurological exam: Alert, Oriented x3 - Skin Additional comments: Jaundice Results - Vital Signs Recent Vital Signs: Last Vital Signs Temp 97.5 F L 03/25/18 06:00 Pulse 106 H 03/25/18 06:00 Resp 18 03/25/18 06:00 BP 110/76 03/25/18 06:00 Pulse Ox 96 03/25/18 06:00 - Labs Result Diagrams: 03/25/18 07:50 03/25/18 07:50 Labs: Laboratory Results - last 24 hr 03/24/18 03/24/18 03/24/18 17:07 17:11 22:13 WBC 8.2 RBC 4.22 Hgb 13.8 L Hct 37.4 L MCV 88.6 MCH 32.7 MCHC 36.9 RDW 16.2 H Plt Count 138 MPV 11.3 H Gran % Lymph % (Auto) Lyman % (Auto) Eos % (Auto) Baso % (Auto) Gran # Lymph # (Auto) Lyman # (Auto) Eos # (Auto) Baso # (Auto) PT INR Sodium Potassium Chloride Carbon Dioxide Anion Gap BUN Creatinine Est GFR ( Amer) Est GFR (Non-Af Amer) Random Glucose Calcium Phosphorus Magnesium Total Bilirubin AST ALT Alkaline Phosphatase Total Protein Albumin Globulin Albumin/Globulin Ratio Urine Color Dark yellow Urine Appearance Sl cloudy Urine pH 6.0 Ur Specific [place] 1.010 Urine Protein Trace H Urine Glucose (UA) Negative Urine Ketones Negative Urine Blood Negative Urine Nitrate Negative Urine Bilirubin Large H Urine Urobilinogen 0.2 Ur Leukocyte Esterase Negative Urine RBC Negative Urine WBC 2 - 5 Ur Epithelial Cells 3 - 4 Amorphous Sediment Few Urine Bacteria Few Blood Type O POSITIVE Antibody Screen Negative BBK History Checked Patient has bt 03/25/18 03/25/18 03/25/18 07:50 07:50 07:50 WBC 8.6 RBC 4.17 Hgb 13.4 L Hct 36.6 L MCV 87.8 MCH 32.1 MCHC 36.6 RDW 16.1 H Plt Count 148 MPV 11.7 H Gran % 57.9 Lymph % (Auto) 11.9 L Lyman % (Auto) 29.6 H Eos % (Auto) 0.5 L Baso % (Auto) 0.1 Gran # 4.96 Lymph # (Auto) 1.0 L Lyman # (Auto) 2.5 H Eos # (Auto) 0.0 Baso # (Auto) 0.01 PT 16.7 H INR 1.44 H Sodium 144 Potassium 3.7 Chloride 110 H Carbon Dioxide 19 L Anion Gap 18 BUN 27 H Creatinine 1.0 Est GFR ( Amer) > 60 Est GFR (Non-Af Amer) > 60 Random Glucose 99 Calcium 8.9 Phosphorus 2.2 L Magnesium 2.3 H Total Bilirubin 17.9 H AST 174 H ALT 182 H Alkaline Phosphatase 422 H Total Protein 7.1 Albumin 3.6 Globulin 3.5 Albumin/Globulin Ratio 1.0 L Urine Color Urine Appearance Urine pH Ur Specific [place] Urine Protein Urine Glucose (UA) Urine Ketones Urine Blood Urine Nitrate Urine Bilirubin Urine Urobilinogen Ur Leukocyte Esterase Urine RBC Urine WBC Ur Epithelial Cells Amorphous Sediment Urine Bacteria Blood Type Antibody Screen BBK History Checked Assessment & Plan - Assessment and Plan (Free Text) Assessment: ASSESSMENT: Obstructive Jaundice Cholelithiasis Billiary Dilitation, r/o Pancreatic mass, r/o CBD stones Atrial fibrillation on Coumadin Supratherapuetic INR (17), now resolved,s/p FFP & Vitamin K CHF Poor EF 20-25% Morbidly Obese PLAN: trend LFT currently off Coumadin Plan for ERCP when optimal, patient pending cardiac evaluation, detail discussion with patient at bedside, he agrees for procedure but is concerned about his who is currently undergoing chemo and would like to be discharged home. Dr. Hood discuss case with Dr. Thompson. Thank you for this consult and for allowing us to participate in your patient care. Seen and discussed with Dr. Hood. <Paloma Hood V - Last Filed: 03/25/18 23:13> Results - Vital Signs Recent Vital Signs: Last Vital Signs Temp 97.8 F 03/25/18 12:00 Pulse 82 03/25/18 14:00 Resp 18 03/25/18 12:00 BP 108/76 03/25/18 12:00 Pulse Ox 96 03/25/18 06:00 - Labs Result Diagrams: 03/25/18 07:50 03/25/18 07:50 Labs: Laboratory Results - last 24 hr 03/25/18 03/25/18 03/25/18 07:50 07:50 07:50 WBC 8.6 RBC 4.17 Hgb 13.4 L Hct 36.6 L MCV 87.8 MCH 32.1 MCHC 36.6 RDW 16.1 H Plt Count 148 MPV 11.7 H Gran % 57.9 Lymph % (Auto) 11.9 L Lyman % (Auto) 29.6 H Eos % (Auto) 0.5 L Baso % (Auto) 0.1 Gran # 4.96 Lymph # (Auto) 1.0 L Lyman # (Auto) 2.5 H Eos # (Auto) 0.0 Baso # (Auto) 0.01 PT 16.7 H INR 1.44 H Sodium 144 Potassium 3.7 Chloride 110 H Carbon Dioxide 19 L Anion Gap 18 BUN 27 H Creatinine 1.0 Est GFR ( Amer) > 60 Est GFR (Non-Af Amer) > 60 Random Glucose 99 Calcium 8.9 Phosphorus 2.2 L Magnesium 2.3 H Total Bilirubin 17.9 H AST 174 H ALT 182 H Alkaline Phosphatase 422 H Total Protein 7.1 Albumin 3.6 Globulin 3.5 Albumin/Globulin Ratio 1.0 L Attending/Attestation - Attestation I have personally seen and examined this patient.: Yes I have fully participated in the care of the patient.: Yes I have reviewed all pertinent clinical information: Yes
--- NOTE | 2018-03-25 19:15 | CARD ---
APPROVED REPORT EXAM: Two-dimensional and M-mode echocardiogram with Doppler and color Doppler. INDICATION LV Function:SystolicDiastolic EF% 2D DIMENSIONS Left Atrium (2D)4.9 (1.6-4.0cm)IVSd1.1 (0.7-1.1cm) LVDd3.7 (3.9-5.9cm)PWd1.1 (0.7-1.1cm) LVDs3.0 (2.5-4.0cm)FS (%) 19.1 % LVEF (%)40.1 (>50%) M-Mode DIMENSIONS Aortic Root2.90 (2.2-3.7cm)Aortic Cusp Exc.1.60 (1.5-2.0cm) Aortic Valve AoV Peak Iaohwxai204.0cm/Luca Peak GR.11mmHg Mitral Valve E/A ratio0.0 TDI E/Lateral E'0.0E/Medial E'0.0 Tricuspid Valve TR Peak [id number] [id number] Peak Gr.32mmHg [id number] LEFT VENTRICLE The left ventricle is normal size. There is normal left ventricular wall thickness. The systolic function is mildly impaired. There is global hypokinesis of the left ventricle. RIGHT VENTRICLE The right ventricle is borderline dilated. There is normal right ventricular wall thickness. Systolic function is mildly reduced. ATRIA The left atrium is moderately dilated. The right atrium is mildly dilated. AORTIC VALVE The aortic valve is moderately sclerotic. No aortic regurgitation is present. There is no aortic valvular stenosis. MITRAL VALVE The mitral valve is moderately thickened. Mitral regurgitation is moderate. TRICUSPID VALVE There is moderate tricuspid regurgitation. There is mild pulmonary hypertension. GREAT VESSELS The aortic root is normal in size. PERICARDIAL EFFUSION There is a trace loculated anterior pericardial effusion. <Conclusion> The left ventricle is normal size. There is normal left ventricular wall thickness. The systolic function is mildly impaired. There is global hypokinesis of the left ventricle. The left atrium is moderately dilated. Mitral regurgitation is moderate. There is moderate tricuspid regurgitation. There is mild pulmonary hypertension.
--- NOTE | 2018-03-26 03:30 | CON ---
DATE: 03/25/2018 REASON FOR CONSULTATION: New pancreatic mass. HISTORY OF PRESENT ILLNESS: Patient is a 77-year-old male known to me as his is my patient who was admitted with new onset of jaundice as well as black tarry stools and dark urine that he noted on his last shift. He also has a known history of atrial fibrillation and is on Coumadin. He denies any dysuria. No frequency. No shortness of breath. No nausea. No vomiting. No abdominal pain. He has not noted any weight changes. No other complaints. I noted that he was jaundiced on his last visit with his at the office and had suggested that he get further evaluation but subsequently patient continuously declined and therefore presented to the emergency room. PAST MEDICAL HISTORY: As above. Known history of atrial fibrillation, morbid obesity, congestive heart failure with ejection fraction of only 20% to 25%. HOME MEDICATIONS: Include carvedilol, lisinopril and Coumadin. ALLERGIES: HE IS ALLERGIC TO ASPIRIN. SOCIAL HISTORY: Positive for smoking. He is a current smoker. 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 Denies any alcohol use or drug abuse. FAMILY HISTORY: Positive for father dying of lung cancer at the age of 65 and mother having coronary artery disease and at the age of 73. REVIEW OF SYSTEMS: As per the HPI. PHYSICAL EXAMINATION: GENERAL: Patient is an elderly pleasant male lying in bed in no acute distress. VITAL SIGNS: Reveal a temperature of 97.2, pulse of 82, respiratory rate of 18, blood pressure 108/76. HEENT: Head and neck: Normocephalic, atraumatic. Eyes: Pupils equal, round, and reactive to light and accommodation. Extraocular muscles are intact. There is no pallor but icterus noticed. NECK: Supple with no adenopathy, no JVD, no thyromegaly. LUNGS: Decreased breath sounds bilaterally secondary to poor effort as well as body habitus. CARDIOVASCULAR: S1 and S2 is heard. ABDOMEN: Positive bowel sounds, soft, nontender, nondistended. No organomegaly is palpated. He is morbidly obese. EXTREMITIES: There is no edema, clubbing or cyanosis. LABORATORY DATA: His labs reveal a white count of 8.6, hemoglobin 13.4, hematocrit 36.6, MCV of 87.8 and a platelet count of 148. White count diff shows a monocytosis of 29.6, otherwise within normal limit. Coagulation studies reveal a INR of 17 on admission but now at 1.4. Chemistries reveal a BUN, creatinine of 27 and 1, sodium is 144, potassium 3.7. His LFTs are also markedly elevated with AST of 174, ALT of 182 and alk phos of 422. Total bili is at 17.9 with the direct bili of 13.6. Amylase, lipase are also elevated. Urine reveals large bili. Tox screen is negative. DIAGNOSTIC DATA: He had CT scan of the abdomen and pelvis upon admission, which revealed a 2 cm adrenal mass, which is consistent with an adrenal adenoma but also suspected pancreatic head mass was noted approximately 3 cm in size with a dilatation of the common bile duct up to 16 mm in diameter, unremarkable lymphadenopathy. ASSESSMENT AND PLAN: An elderly male with sudden onset of painless jaundice. CT scan of the abdomen reveals a possible pancreatic head mass. His subsequent magnetic resonance cholangiopancreatography though was not clear as there was a mass there. He is currently awaiting endoscopic retrograde cholangiopancreatography and further Gastroenterology evaluation. We will also check CA 19-9 as well as CEA. Patient will likely need endoscopic retrograde cholangiopancreatography with biopsy to further characterize this elevation in his bilirubin as well as liver function tests. Suspicion for malignancy is very high in this case. I will discuss with patient as well as regarding further plans. Though considering his cardiomyopathy, he is not an excellent candidate for surgery, we will have to review with his PMD as well as appliquer. Thank you for the consult. We will follow. Marianne Wallace MD
== END 2018-03-25 15:35 | disposition home or self-care (01) | DRG 378 ==
LOC: ED 12:33 → ERH 15:10 → 2RSO 18:40
PROVIDERS: ADMIT Internal Medicine Nephrology; ATTEND Internal Medicine Nephrology
PROC: 30233K1 Transfusion of Nonautologous Frozen Plasma into Peripheral Vein, Percutaneous Approach (ICD-10-PCS; principal; 2018-03-24)
DX: K92.2 Gastrointestinal hemorrhage, unspecified (principal); K80.21 Calculus of gallbladder without cholecystitis with obstruction; I50.22 Chronic systolic (congestive) heart failure; N17.9 Acute kidney failure, unspecified; I42.9 Cardiomyopathy, unspecified; Z68.41 Body mass index [BMI] 40.0-44.9, adult; R31.9 Hematuria, unspecified; I11.0 Hypertensive heart disease with heart failure; I48.91 Unspecified atrial fibrillation; E87.6 Hypokalemia; E66.01 Morbid (severe) obesity due to excess calories; E78.00 Pure hypercholesterolemia, unspecified; F17.290 Nicotine dependence, other tobacco product, uncomplicated; I25.10 Atherosclerotic heart disease of native coronary artery without angina pectoris; K83.8 Other specified diseases of biliary tract; E83.39 Other disorders of phosphorus metabolism; E27.9 Disorder of adrenal gland, unspecified; K86.9 Disease of pancreas, unspecified; K57.30 Diverticulosis of large intestine without perforation or abscess without bleeding; Z79.01 Long term (current) use of anticoagulants; Z88.6 Allergy status to analgesic agent; Z82.49 Family history of ischemic heart disease and other diseases of the circulatory system; Z80.1 Family history of malignant neoplasm of trachea, bronchus and lung

== ENCOUNTER 2018-04-02 14:38 | Inpatient (IN) | payer MEDICARE ==
[2018-04-02 14:38] VITALS: BMI 41.5
[2018-04-02] MEDS ORDERED: Sodium Chloride 0.9% 500 ML IV STA ×2 (15:37→16:08)
[2018-04-02 15:39] LABS: BASO # 0.01 K/mm3 (0.0-2.0); BASO % 0.1 % (0.0-3.0); GRAN # 10.33 (1.4-6.5); GRAN % 79.2 % (50.0-68.0); HEMOGLOBIN 12.7 g/dL (14.0-18.0); LYMPH # 1.3 (1.2-3.4); LYMPH % 9.7 % (22.0-35.0); MEAN CELL VOLUME 87.8 fl (80.0-105.0); MEAN CORPUSCULAR HEMOGLOBIN 32.2 pg (25.0-35.0); MEAN CORPUSCULAR HGB CONC 36.7 g/dl (31.0-37.0); MEAN PLATELET VOLUME 11.9 fl (7.0-11.0); MONO # 1.4 (0.1-0.6); RBC 3.94 10^6/uL (3.5-6.1); RED CELL DISTRIBUTION WIDTH 17.3 % (11.5-14.5); WHITE BLOOD COUNT 13.1 10^3/ul (4.5-11.0)
[2018-04-02 15:44] LABS: INR 2.73 (0.93-1.08); PARTIAL THROMBOPLASTIN TIME 37.9 Seconds (25.1-36.5); PROTHROMBIN TIME 31.8 SECONDS (9.4-12.5)
--- NOTE | 2018-04-02 15:50 | ED PDOC ---
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 Patient was being prepped for endoscopy, when patient was found hypotensive. Patient notes he feel weak. Patient was discharged on , and states he hasn't been eating or drinking much. Patient denies any fever, chills, chest pain, shortness of breath , nausea, vomiting, diarrhea, back pain, neck pain, headache, dizziness, or any other complaints. PMD: Dr. Xiong Time/Duration: Prior to Arrival Symptom Onset: Sudden Symptom Course: Unchanged Activities at Onset: Light Context: Home Past Medical History - Provider Review Nursing Documentation Reviewed: Yes - Infectious Disease Hx of Infectious Diseases: None - Tetanus Immunization Tetanus Immunization: Unknown - Past Medical History Past Medical History: No Previous - Cardiac Hx Pacemaker: No - Pulmonary Hx Respiratory Disorders: Yes (SMOKED CIGARS 10/YR) - Neurological Hx Paralysis: No - HEENT Hx HEENT Disorder: No - Renal Hx Renal Disorder: No - Endocrine/Metabolic Hx Endocrine Disorders: No - Hematological/Oncological Hx Blood Transfusions: Yes (PLASMA) - Integumentary Hx Dermatological Disorder: Yes (JAUNDICED 03-24-18) Other/Comment: 03-24-18 MULTIPLE BRUISING,BILATERAL LE DARKENED BROWN SKIN DISCOLORATION EDEMA +1,SKIN TIGHT. - Musculoskeletal/Rheumatological Hx Musculoskeletal Disorders: No - Gastrointestinal Hx Gastrointestinal Disorders: Yes (BLOODY STOOLS) Hx Gall Bladder Disease: Yes (GALLSTONES,CHOLELITHIASIS) - Genitourinary/Gynecological Hx Genitourinary Disorders: Yes Hx Hematuria: Yes (03-24-18) - Psychiatric Hx Psychophysiologic Disorder: No Hx Substance Use: No - Past Surgical History Past Surgical History: Non-Contributing - Surgical History Hx Cardiac Catheterization: Yes - Anesthesia Hx Anesthesia Reactions: No Hx Malignant Hyperthermia: No - Suicidal Assessment Feels Threatened In Home Enviroment: No Family/Social History - Physician Review Nursing Documentation Reviewed: Yes Family/Social History: Unknown Family HX Smoking Status: Former Smoker Hx Alcohol Use: Yes (SOCIALLY) Hx Substance Use: No Allergies/Home Meds Allergies/Adverse Reactions: Allergies aspirin Allergy (Verified 04/02/18 14:49) ANAPHYLAXIS Penicillins Allergy (Verified 04/02/18 14:49) PT DOES NOT REMEMBER THE REACTION Home Medications: Home Meds Medication Instructions Recorded Confirmed Carvedilol [Coreg] 6.25 mg PO BID 04/27/14 04/02/18 Warfarin Sodium [Coumadin] 3 mg PO DAILY 04/27/14 04/02/18 Lisinopril [Zestril] 5 mg PO DAILY 04/02/18 04/02/18 Review of Systems - Physician Review All systems were reviewed & negative as marked: Yes - Review of Systems Constitutional: Other (generalized weakness) Eyes: Normal ENT: Normal Respiratory: Normal. absent: SOB, Cough Cardiovascular: Normal. absent: Chest Pain Gastrointestinal: Normal. absent: Abdominal Pain, Diarrhea, Nausea, Vomiting Genitourinary Male: Normal. absent: Dysuria, Frequency, Hematuria Musculoskeletal: Normal. absent: Back Pain, Neck Pain Skin: Normal. absent: Rash Neurological: Normal. absent: Headache, Dizziness Endocrine: Normal Hemo/Lymphatic: Normal Psychiatric: Normal Physical Exam Vital Signs Reviewed: Yes Vital Signs Temp Pulse Resp BP Pulse Ox 04/02/18 17:54 84 17 85/52 L 97 04/02/18 17:47 87 17 88/53 L 98 04/02/18 17:30 84 18 95/57 L 97 04/02/18 16:31 87 17 84/51 L 95 04/02/18 16:07 88 17 81/59 L 96 04/02/18 15:32 95 H 17 86/57 L 100 04/02/18 15:08 99.7 F H 84 18 129/54 L 100 04/02/18 15:00 93 H 18 65/40 L 100 04/02/18 14:45 98.8 F 85 17 66/44 L 100 Temperature: Afebrile Blood Pressure: Hypotensive Pulse: Regular Respiratory Rate: Normal Appearance: Positive for: Well-Appearing, Non-Toxic, Comfortable Pain Distress: None Mental Status: Positive for: Alert and Oriented X 3 Finger Stick Blood Glucose: 111 - Systems Exam Head: Present: Atraumatic, Normocephalic Pupils: Present: PERRL Extroacular Muscles: Present: EOMI Conjunctiva: Present: Icteric Mouth: Present: Moist Mucous Membranes Neck: Present: Normal Range of Motion. No: Meningeal Signs, MIDLINE TENDERNESS , Paraspinal Tenderness Respiratory/Chest: Present: Clear to Auscultation, Good Air Exchange. No: Respiratory Distress, Accessory Muscle Use Cardiovascular: Present: Regular Rate and Rhythm, Normal S1, S2. No: Murmurs Abdomen: No: Tenderness, Distention, Peritoneal Signs Back: Present: Normal Inspection. No: CVA Tenderness, Midline Tenderness, Paraspinal Tenderness Upper Extremity: Present: Normal Inspection. No: Cyanosis, Edema Lower Extremity: Present: Edema Neurological: Present: GCS=15, CN II-XII Intact, Speech Normal Skin: Present: Warm, Dry, Other (Jaundice). No: Rashes Psychiatric: Present: Alert, Oriented x 3, Normal Insight, Normal Concentration Medical Decision Making ED Course and Treatment: 04/02/18 15:53 Impression: 77 year old male presents to the ED complaining of low blood pressure. Differential Diagnosis but is not limited to: Obstructive jaundice vs. r/o sepsis vs. r/o cardiac Plan: -- Labs -- Venous Blood Gas -- EKG -- CXR -- Sodium Chloride -- Urinalysis -- Blood Culture -- Reassess and disposition Progress Notes: 04/02/18 16:47 Patient received a 1 L of IVF prior to arrival to ED. Patient's blood pressure is improving with IVF. He is noted to have elevated WBC at 13. LA at 2.2. Patient has no fever, chills or bodyaches. Code Sepsis was called. Case reviewed with ICU attending, Dr. Barkley, and we agree that he's most likely presenting with severe hypotension in need of more IVF. Antibiotics broad spectrum ordered. Pending reevaluation for possible ICU. 04/02/18 17:08 Patient is AAOx3. No shortness of breathe. Lungs CTA. No w/r/r. 04/02/18 17:29 95/57, MAP 70. Blood pressure improving. 04/02/18 18:10 Rectal showed brown stool. Guaic negative. Discussed case with Dr. Vanegas who will accept patient to his service. Case discussed with Dr. Xiong who agreeds to place consult with Dr. Hood. Will continue to hydrate. - Critical Care Critical Care Minutes: 60 minutes - Lab Interpretations Lab Results: 04/02/18 14:54 04/02/18 14:54 Lab Results 04/02/18 16:45: Ammonia 22 04/02/18 15:25: pO2 42, VBG pH 7.23 L, VBG pCO2 44.0, VBG HCO3 18.4 L, VBG Total CO2 19.8 L, VBG O2 Sat (Calc) 80.8 H, VBG Base Excess -8.9 L, VBG Potassium 4.2, Glucose 102, Lactate 2.2 H, FiO2 21.0, Sodium 138.0, Chloride 106.0, Venous Blood Potassium 4.2 04/02/18 14:54: Sodium 142, Potassium 4.2, Chloride 106, Carbon Dioxide 19 L, Anion Gap 21 H, BUN 65 H, Creatinine 4.8 H, Est GFR ( Amer) 14, Est GFR ( Non-Af Amer) 12, Random Glucose 105, Calcium 8.2 L, Phosphorus 6.7 H, Magnesium 2.2, Total Bilirubin 35.6 H*, Direct Bilirubin 32.7 H, AST 92 H, ALT 94 H, Alkaline Phosphatase 410 H, Lactate Dehydrogenase 542, Total Creatine Kinase 78 , Troponin I < 0.01, NT-Pro-B Natriuret Pep 9760 H, Total Protein 6.9, Albumin 3.1, Globulin 3.8, Albumin/Globulin Ratio 0.8 L 04/02/18 14:54: PT 31.8 H, INR 2.73 H, APTT 37.9 H 04/02/18 14:54: WBC 13.1 H, RBC 3.94, Hgb 12.7 L, Hct 34.6 L, MCV 87.8, MCH 32.2 , MCHC 36.7, RDW 17.3 H, Plt Count 169, MPV 11.9 H, Gran % 79.2 H, Lymph % (Auto ) 9.7 L, [place] % (Auto) 11.0 H, Eos % (Auto) 0.0 L, Baso % (Auto) 0.1, Gran # 10.33 H, Lymph # (Auto) 1.3, [place] # (Auto) 1.4 H, Eos # (Auto) 0.0, Baso # (Auto ) 0.01 - RAD Interpretation Radiology Orders: 04/02/18 15:08 CHEST PORTABLE [RAD] Stat - Medication Orders Current Medication Orders: Vancomycin HCl (Vancomycin 1gm) 1 gm in 250 mls @ 167 mls/hr IVPB STAT STA PRN Reason: Protocol Stop: 04/02/18 18:25 Last Admin: 04/02/18 17:14 Dose: 167 mls/hr eMAR Start Stop Document 04/02/18 17:14 [email or web address] (Rec: 04/02/18 17:14 [email or web address] [id number]) Intravenous Solution Start Date 04/02/18 Start Time 17:14 End Date 04/02/18 Sodium Chloride (Sodium Chloride 0.9%) 1,000 mls @ 100 mls/hr IV .Q10H ARIC Discontinued Medications Sodium Chloride (Sodium Chloride 0.9%) 500 mls @ 999 mls/hr IV .Q31M STA Stop: 04/02/18 16:07 Last Admin: 04/02/18 16:14 Dose: 999 mls/hr eMAR Start Stop Document 04/02/18 16:14 SF (Rec: 04/02/18 16:15 SF [id number]) Intravenous Solution Start Date 04/02/18 Start Time 15:37 End Date 04/02/18 End time 16:07 Total Infusion Time 30 Sodium Chloride (Sodium Chloride 0.9%) 500 mls @ 999 mls/hr IV .Q31M STA Stop: 04/02/18 16:38 Last Admin: 04/02/18 16:15 Dose: 999 mls/hr eMAR Start Stop Document 04/02/18 16:15 SF (Rec: 04/02/18 16:15 SF [id number]) Intravenous Solution Start Date 04/02/18 Start Time 16:15 End Date 04/02/18 End time 16:45 Total Infusion Time 30 Sodium Chloride (Sodium Chloride 0.9%) 1,000 mls @ 999 mls/hr IV .Q1H1M STA Stop: 04/02/18 17:19 Last Admin: 04/02/18 16:31 Dose: 999 mls/hr eMAR Start Stop Document 04/02/18 16:31 SF (Rec: 04/02/18 16:31 SF [id number]) Intravenous Solution Start Date 04/02/18 Start Time 16:31 End Date 04/02/18 End time 17:32 Total Infusion Time 61 Aztreonam (Azactam 2 Gm) 100 mls @ 100 mls/hr IVPB STAT STA PRN Reason: Protocol Stop: 04/02/18 17:52 Sodium Chloride (Sodium Chloride 0.9%) 1,000 mls @ 2,000 mls/hr IV .Q30M ONE Stop: 04/02/18 17:26 - Scribe Statement The provider has reviewed the documentation as recorded by the Scribe Lynn Anthony All medical record entries made by the Scribe were at my direction and personally dictated by me. I have reviewed the chart and agree that the record accurately reflects my personal performance of the history, physical exam, medical decision making, and the department course for this patient. I have also personally directed, reviewed, and agree with the discharge instructions and disposition. Disposition/Present on Arrival - Present on Arrival Any Indicators Present on Arrival: No History of DVT/PE: No History of Uncontrolled Diabetes: No Urinary Catheter: No History of Decub. Ulcer: No History Surgical Site Infection Following: None - Disposition Have Diagnosis and Disposition been Completed?: Yes Diagnosis: Sepsis, Obstructive jaundice, Acute renal failure Disposition: HOSPITALIZED Disposition Time: 18:11 Patient Plan: Admission Condition: CRITICAL Discharge Instructions (ExitCare): Sepsis (ED) Referrals: Lauro Villalba MD [Primary Care Provider] - Follow up with primary Forms: [employer] (Welsh)
--- NOTE | 2018-04-02 15:55 | RAD ---
HISTORY: Sepsis Patient COMPARISON: 03/24/2018 FINDINGS: LUNGS: No active pulmonary disease. PLEURA: No significant pleural effusion identified, no pneumothorax apparent. CARDIOVASCULAR: Normal. OSSEOUS STRUCTURES: No significant abnormalities. VISUALIZED UPPER ABDOMEN: Normal. OTHER FINDINGS: None. IMPRESSION: No active disease.
[2018-04-02 16:02] LABS: ALB/GLOB RATIO 0.8 (1.1-1.8); ALBUMIN 3.1 g/dL (3.0-4.8); ALT/SGPT 94 U/L (7-56); AST/SGOT 92 U/L (17-59); B-TYPE NATRIURETIC PEPTIDE 9760 pg/mL (0-450); BILIRUBIN,DIRECT 32.7 mg/dL (0.0-0.4); BLOOD UREA NITROGEN 65 mg/dL (7-21); CALCIUM 8.2 mg/dL (8.4-10.5); GFR AFRICAN-AMERICAN 14; GFR NON-AFRICAN AMERICAN 12; TROPONIN I < 0.01 ng/mL
[2018-04-02 16:09] LABS: VENOUS BLOOD GAS BASE EXCESS -8.9 mmol/L (0.0-2.0); VENOUS BLOOD GAS PO2 42 mm/Hg (30-55); VENOUS BLOOD PH 7.23 (7.32-7.43)
[2018-04-02] MEDS ORDERED: Sodium Chloride 0.9% 1,000 ML IV STA (16:19)
[2018-04-02] MEDS ORDERED: Aztreonam 2 Gm in NS 100mL 100 ML IVPB STA (16:53)
[2018-04-02] MEDS ORDERED: Vancomycin 1gm in NS 250ml 1 GM/250 ML BAG IVPB STA (16:56)
[2018-04-02] MEDS ORDERED: Sodium Chloride 0.9% 1,000 ML IV ONE (16:57)
--- NOTE | 2018-04-02 17:04 | CP.PCM.CON ---
History of Present Illness - History of Present Illness History of Present Illness: MICU Consult Note HPI Patient is 77yo male with PMHx of afib, CHF, obstructive jaundice, and GI bleed adlaberto to Coumadin toxicity, presented from endoscopy today for scheduled EGD, for hypotension. As per the patient he has not eaten or drank any fluids for 2 days , and has taken coreg and Lisinopril for HTN in that time. In Endoscopy SBP noted to be 60s, brought to the ER, given 1.5L bolus, last BP 89/60, MAP 70. Patient is awake, alert, oriented x 3, providing full history, reports weakness , fatigue, and lack of energy. Denies fever, chills, cough, chest pain, palpitations, OCAMPO, dizziness. No other constitutional symptoms. Lactate 2.2 PMHx as above PSHx as above Meds Lisinopril, Coreg FHx NC Social former cigar smoker, denies ETOH, dug use ROS as above Review of Systems - Review of Systems Review of Systems: as per HPI Past Patient History - Infectious Disease Hx of Infectious Diseases: None - Tetanus Immunizations Tetanus Immunization: Unknown - Past Social History Smoking Status: Former Smoker - CARDIAC Hx Pacemaker: No - PULMONARY Hx Respiratory Disorders: Yes (SMOKED CIGARS 10/YR) - NEUROLOGICAL Hx Paralysis: No - HEENT Hx HEENT Problems: No - RENAL Hx Chronic Kidney Disease: No - ENDOCRINE/METABOLIC Hx Endocrine Disorders: No - HEMATOLOGICAL/ONCOLOGICAL Hx Blood Transfusions: Yes (PLASMA) - INTEGUMENTARY Hx Dermatological Problems: Yes (JAUNDICED 03-24-18) Other/Comment: 03-24-18 MULTIPLE BRUISING,BILATERAL LE DARKENED BROWN SKIN DISCOLORATION EDEMA +1,SKIN TIGHT. - MUSCULOSKELETAL/RHEUMATOLOGICAL Hx Musculoskeletal Disorders: No - GASTROINTESTINAL Hx Gastrointestinal Disorders: Yes (BLOODY STOOLS) Hx Gall Bladder Disease: Yes (GALLSTONES,CHOLELITHIASIS) - GENITOURINARY/GYNECOLOGICAL Hx Genitourinary Disorders: Yes Hx Hematuria: Yes (03-24-18) - PSYCHIATRIC Hx Psychophysiologic Disorder: No Hx Substance Use: No - SURGICAL HISTORY Hx Cardiac Catheterization: Yes - ANESTHESIA Hx Anesthesia Reactions: No Hx Malignant Hyperthermia: No Meds Allergies/Adverse Reactions: Allergies Allergy/AdvReac Type Severity Reaction Status Date / Time aspirin Allergy ANAPHYLAXIS Verified 04/02/18 14:49 Penicillins Allergy PT DOES Verified 04/02/18 14:49 NOT REMEMBER THE REACTION - Medications Medications: Current Medications Sodium Chloride (Sodium Chloride 0.9%) 1,000 mls @ 999 mls/hr IV .Q1H1M STA Stop: 04/02/18 17:19 Last Admin: 04/02/18 16:31 Dose: 999 mls/hr Physical Exam - Constitutional Appears: Non-toxic, No Acute Distress - Head Exam Head Exam: NORMAL INSPECTION - Eye Exam Eye Exam: Normal appearance - ENT Exam ENT Exam: Mucous Membranes Dry - Neck Exam Neck exam: Positive for: Full Rom - Respiratory Exam Respiratory Exam: Clear to Auscultation Bilateral, NORMAL BREATHING PATTERN - Cardiovascular Exam Cardiovascular Exam: Irregular Rhythm, +S1, +S2 - GI/Abdominal Exam GI & Abdominal Exam: Normal Bowel Sounds, Soft - Extremities Exam Extremities exam: Positive for: pedal edema - Neurological Exam Neurological exam: Alert, CN II-XII Intact, Oriented x3 - Psychiatric Exam Psychiatric exam: Normal Affect - Skin Skin Exam: Normal Color, Warm Results - Vital Signs Recent Vital Signs: Last Vital Signs Temp 99.7 F H 04/02/18 15:08 Pulse 87 04/02/18 16:31 Resp 17 04/02/18 16:31 BP 84/51 L 04/02/18 16:31 Pulse Ox 95 04/02/18 16:31 - Labs Result Diagrams: 04/02/18 14:54 04/02/18 14:54 Labs: Laboratory Results - last 24 hr 04/02/18 04/02/18 04/02/18 14:54 14:54 14:54 WBC 13.1 H RBC 3.94 Hgb 12.7 L Hct 34.6 L MCV 87.8 MCH 32.2 MCHC 36.7 RDW 17.3 H Plt Count 169 MPV 11.9 H Gran % 79.2 H Lymph % (Auto) 9.7 L [place] % (Auto) 11.0 H Eos % (Auto) 0.0 L Baso % (Auto) 0.1 Gran # 10.33 H Lymph # (Auto) 1.3 [place] # (Auto) 1.4 H Eos # (Auto) 0.0 Baso # (Auto) 0.01 PT 31.8 H INR 2.73 H APTT 37.9 H pO2 VBG pH VBG pCO2 VBG HCO3 VBG Total CO2 VBG O2 Sat (Calc) VBG Base Excess VBG Potassium Glucose Lactate FiO2 Sodium 142 Potassium 4.2 Chloride 106 Carbon Dioxide 19 L Anion Gap 21 H BUN 65 H Creatinine 4.8 H Est GFR ( Amer) 14 Est GFR (Non-Af Amer) 12 Random Glucose 105 Calcium 8.2 L Phosphorus 6.7 H Magnesium 2.2 Total Bilirubin 35.6 H* Direct Bilirubin 32.7 H AST 92 H ALT 94 H Alkaline Phosphatase 410 H Lactate Dehydrogenase 542 Total Creatine Kinase 78 Troponin I < 0.01 NT-Pro-B Natriuret Pep 9760 H Total Protein 6.9 Albumin 3.1 Globulin 3.8 Albumin/Globulin Ratio 0.8 L Venous Blood Potassium 04/02/18 15:25 WBC RBC Hgb Hct MCV MCH MCHC RDW Plt Count MPV Gran % Lymph % (Auto) [place] % (Auto) Eos % (Auto) Baso % (Auto) Gran # Lymph # (Auto) [place] # (Auto) Eos # (Auto) Baso # (Auto) PT INR APTT pO2 42 VBG pH 7.23 L VBG pCO2 44.0 VBG HCO3 18.4 L VBG Total CO2 19.8 L VBG O2 Sat (Calc) 80.8 H VBG Base Excess -8.9 L VBG Potassium 4.2 Glucose 102 Lactate 2.2 H FiO2 21.0 Sodium 138.0 Potassium Chloride 106.0 Carbon Dioxide Anion Gap BUN Creatinine Est GFR ( Amer) Est GFR (Non-Af Amer) Random Glucose Calcium Phosphorus Magnesium Total Bilirubin Direct Bilirubin AST ALT Alkaline Phosphatase Lactate Dehydrogenase Total Creatine Kinase Troponin I NT-Pro-B Natriuret Pep Total Protein Albumin Globulin Albumin/Globulin Ratio Venous Blood Potassium 4.2 - Imaging and Cardiology Chest x-ray Status: Image reviewed by me Assessment & Plan - Assessment and Plan (Free Text) Assessment: 77yo male a/w ARF, dehydration, hypotension Hypotension, resolved Dehydration ARF Jaundice Anemia - currently afebrile, BP stable, 89/70, MAP 70, AAOx3, NAD, providing full history - likely has ARF, dehydration from poo PO intake, in setting of ACEI/BB usage as well - BUN/Cr, markedly elevated - CXR clear, UA pending - Lactate 2.2 Recommend: - supp o2 as needed - panculture, UCx, BCx, Procal, would hold off abx for now - HOLD BP meds - IVF hydration - check UA, Ulytes - renal sono - renal consult - GI ppx - DVT ppx - resume diet - monitor on telemetry please re-consult ICU as needed or if clinical status changes
[2018-04-02] MEDS: Sodium Chloride 0.9% 1,000 ML IV SCH (19:00)
[2018-04-02 19:40] LABS: VENOUS BLOOD GAS BASE EXCESS -10.6 mmol/L (0.0-2.0); VENOUS BLOOD GAS PO2 86 mm/Hg (30-55); VENOUS BLOOD PH 7.27 (7.32-7.43)
[2018-04-02 20:11] LABS: PH,URINE 6.5 (4.7-8.0); URINE BILIRUBIN LARGE (NEGATIVE); URINE BLOOD LARGE (NEGATIVE); URINE GLUCOSE (UA) 250 mg/dL (NEGATIVE); URINE LEUKOCYTE ESTERASE NEGATIVE Leu/uL (NEGATIVE); URINE PROTEIN 100 mg/dL (<30 mg/dL)
[2018-04-02 20:14] LABS: URINE APPEARANCE SLIGHT-CLOUDY (CLEAR); URINE COLOR DARK YELLOW (YELLOW)
[2018-04-02 20:19] LABS: URINE BACTERIA MANY (NEG); URINE EPITHELIAL CELLS 0 - 2 /hpf (0-5); URINE RBC 25 - 30 /hpf (0-2)
[2018-04-02 20:20] LABS: URINE AMORPHOUS SEDIMENT FEW; URINE COARSE GRANULAR CAST TRACE /hpf (0-2)
--- NOTE | 2018-04-02 21:54 | PCM.SEPTIC ---
<Tobi Wilkinson - Last Filed: 04/02/18 22:31> Sepsis Progress Note - Reassessment Type Date of Evaluation: 04/02/18 Time of Evaluation: 21:50 Reassessment Type: Non-invasive reassessment - Non Invasive Reassessment Were the most recent vital sign reviewed: Yes Vital Sign (Latest): Temp Pulse Resp BP Pulse Ox 97.7 F 100 H 16 132/108 H 96 04/02/18 20:21 04/02/18 20:21 04/02/18 20:21 04/02/18 20:21 04/02/18 19:25 Cardiovascular: Yes: Regular Rate, Rhythm, Chest Non Tender. No: Edema, Gallop , JVD, Murmur, Bradycardia, Tachycardia, Ectopy, Friction Rub, Irregularly Irregular Respiratory: Yes: Normal Breath Sounds. No: Decreased Breath Sounds, Accessory Muscle Use, Crackles, Rales, Rhonchi, Stridor, Wheezing, Respiratory Distress, Plerual Rub Capillary Refill: Normal (Less than 2 sec) Pulses: Normal Radial, Normal Dorsalis Pedis, Normal Posterior Tibialis Skin: Warm, Dry, Jaundice - Invasive Reassessment (complete 2 of 4) Was a Central Venous Pressure Measurement obtained within 6 Hours after the presentation of septic shock: No Was a central venous oxygen measurement obtained within 6 hours after the presentation of septic shock: No Was a bedside cardiovascular ultrasound performed within 6 hours after the presentation of septic shock: No Was a passive leg raise performed or was a fluid challenge performed within 6 hrs of the initial fluid bolus: No Passive Leg Raise Result: Not Applicable Fluid Challenge performed: No <Gerard Abbasi - Last Filed: 04/03/18 06:41> Sepsis Progress Note - Non Invasive Reassessment Vital Sign (Latest): Temp Pulse Resp BP Pulse Ox 97.7 F 99 H 16 81/40 L 96 04/02/18 20:21 04/03/18 02:50 04/03/18 02:50 04/03/18 02:30 04/03/18 02:50
[2018-04-03] MEDS: Sodium Chloride 0.9% 1,000 ML IV SCH ×2 (00:52→12:02)
[2018-04-03] MEDS: Sodium Chloride 0.9% 250 ML IV SCH ×3 (01:56→02:30)
[2018-04-03] MEDS ORDERED: Sodium Chloride 0.9% 250 ML IV SCH (02:30)
[2018-04-03 06:18] LABS: GRAN # 10.61 (1.4-6.5); GRAN % 78.4 % (50.0-68.0); HEMOGLOBIN 11.8 g/dL (14.0-18.0); LYMPH # 1.4 (1.2-3.4); LYMPH % 10.1 % (22.0-35.0); MEAN CELL VOLUME 87.6 fl (80.0-105.0); MEAN CORPUSCULAR HEMOGLOBIN 32.5 pg (25.0-35.0); MEAN CORPUSCULAR HGB CONC 37.1 g/dl (31.0-37.0); MEAN PLATELET VOLUME 10.9 fl (7.0-11.0); MONO # 1.6 (0.1-0.6); MONO % 11.5 % (1.0-6.0); RBC 3.63 10^6/uL (3.5-6.1); RED CELL DISTRIBUTION WIDTH 17.6 % (11.5-14.5); WHITE BLOOD COUNT 13.5 10^3/ul (4.5-11.0)
[2018-04-03] MEDS ORDERED: Sodium Chloride 0.9% 500 ML IV STA (06:44)
[2018-04-03 06:52] LABS: ALB/GLOB RATIO 0.8 (1.1-1.8); ALBUMIN 2.9 g/dL (3.0-4.8); ALT/SGPT 81 U/L (7-56); AST/SGOT 89 U/L (17-59); BLOOD UREA NITROGEN 69 mg/dL (7-21); CALCIUM 7.2 mg/dL (8.4-10.5); GFR AFRICAN-AMERICAN 14; GFR NON-AFRICAN AMERICAN 11
[2018-04-03 07:07] LABS: ARTERIAL BLOOD GAS HCO3 12.4 mmol/L (21-28); ARTERIAL BLOOD GAS PCO2 24 mm/Hg (35-45); ARTERIAL BLOOD GAS PH 7.32 (7.35-7.45); ARTERIAL BLOOD GAS TCO2 13.1 mmol.L (22-28)
[2018-04-03] MEDS ORDERED: Phytonadione 10 MG in Sodium Chloride 0.9% 50 ML IV ONE (08:46)
--- NOTE | 2018-04-03 09:02 | CP.PCM.CON ---
History of Present Illness - History of Present Illness History of Present Illness: General Surgery Consult Note for Dr. Arauz Reason for consult: Central line placement 77 M with PMH that includes atrial fibrillation, CHF, obstructive jaundice, and GI bleed due to Coumadin overdose presents to [facility] for complaint of hypotension. Patient was seen and evaluated in the ICU. Patient was scheduled for outpatient ERCP on 04/02. At that time, patient was found to be hypotensive so he was sent to the ED. ICU was consulted and accepted the patient. At that time patient MAP was 70. Patient's ERCP was scehduled after recent admission for obstructive jaundice and coagulopathy due to Coumadin toxicity. Patient was found to have a stricture and dilated CBD. CT scan demonstrted concern for pancreatic mass so MRCP was ordered. This confirmed CBD stricture but could not rule out pancreatic mass or cholangiocarcinoma. INR at that time was 17.44. On this admission, patient's INR was 2.75. Today, it increased to 3.35. Patient has no complaints and states he is feeling fine. Admits to jaundice bilateral LE edema and easy bruising. General Surgery consulted for central line placement. 12 point ROS performed and negative unless otherwise stated above. PMH: atrial fibrillation, CHF, obstructive jaundice, GI bleed due to Coumadin overdose Meds: Lisinopril, Coreg, Coumadin Allergy: ASA, PCN PSH: Endoscopy FH: non-contributory Social: former cigar smoker, denies EtOH/illicit drug use Review of Systems - Review of Systems All systems: reviewed and no additional remarkable complaints except (as per HPI ) Past Patient History - Infectious Disease Hx of Infectious Diseases: None - Tetanus Immunizations Tetanus Immunization: Unknown - Past Social History Smoking Status: Current Some Days Smoker - CARDIAC Hx Cardiac Disorders: Yes Hx Cardia Arrhythmia: Yes Hx Circulatory Problems: No Hx Congestive Heart Failure: Yes Hx Heart Murmur: No Hx Heart Transplant: No Hx Hypercholesterolemia: Yes Hx Hypertension: Yes Hx Internal Defibrillator: No Hx Mitral Valve Prolapse: No Hx Pacemaker: No Hx Peripheral Edema: No Hx Peripheral Vascular Disease: No - PULMONARY Hx Respiratory Disorders: No Hx Asthma: No Hx Bronchitis: No Hx Chronic Obstructive Pulmonary Disease (COPD): No Hx Emphysema: No Hx Pneumonia: No Hx Respiratory Aspiration: No Hx Respiratory Tract Infection: No Hx Sleep Apnea: No Hx Tuberculosis: No - NEUROLOGICAL Hx Neurological Disorder: No Hx Alzheimer's Disease: No HX Cerebrovascular Accident: No Hx Dementia: No Hx Dizziness: No Hx Meningitis: No Hx Migraine: No Hx Parkinson's Disease: No Hx Seizures: No Hx Transient Ischemic Attacks (TIA): No - HEENT Hx HEENT Problems: No - RENAL Hx Chronic Kidney Disease: No - ENDOCRINE/METABOLIC Hx Endocrine Disorders: No - HEMATOLOGICAL/ONCOLOGICAL Hx Blood Disorders: No Hx AIDS: No Hx Anemia: No Hx Cancer: No Hx Chemotherapy: No Hx Cirrhosis: No Hx Hepatitis A: No Hx Hepatitis B: No Hx Hepatitis C: No Hx Human Immunodeficiency Virus (HIV): No Hx Metastesis: No Hx Shingles: No Hx Unexplained Bleeding: No - INTEGUMENTARY Hx Dermatological Problems: No - MUSCULOSKELETAL/RHEUMATOLOGICAL Hx Musculoskeletal Disorders: Yes Hx Arthritis: No Hx Back Pain: No Hx Degenerative Joint Disease: No Hx Falls: No Hx Fractures: No Hx Gout: No Hx Herniated Disk: No Hx Myasthenia Gravis: No Hx Osteoarthritis: Yes Hx Osteomyelitis: No Hx Osteoporosis: No Hx Rhabdomyolysis: No Hx Spinal Stenosis: No Hx Unsteady Gait: No - GASTROINTESTINAL Hx Gastrointestinal Disorders: Yes Hx Colostomy: No Hx Crohn's Disease: No Hx Diverticulitis: No Hx Gall Bladder Disease: Yes Hx Gastroesophageal Reflux: No Hx Ileostomy: No Hx Liver Failure: No Hx Pancreatitis: No HX Swallowing Problems: No Hx Ulcer: No - GENITOURINARY/GYNECOLOGICAL Hx Genitourinary Disorders: No - PSYCHIATRIC Hx Psychophysiologic Disorder: No Hx Substance Use: No - SURGICAL HISTORY Hx Surgeries: No Hx Amputation: No Hx Appendectomy: No Hx Cardiac Catheterization: Yes Hx Cholecystectomy: No Hx Coronary Stent: No Hx Gastric Bypass Surgery: No Hx Hysterectomy: No Hx Joint Replacement: No Hx Kidney Transplant: No Hx Liver Transplant: No Hx Mastectomy: No Hx Musculoskeletal Surgery: No Hx Open Heart Surgery: No Hx Orthopedic Surgery: No Hx Splenectomy: No Hx Valve Replacement: No - ANESTHESIA Hx Anesthesia Reactions: No Hx Malignant Hyperthermia: No Meds Allergies/Adverse Reactions: Allergies Allergy/AdvReac Type Severity Reaction Status Date / Time aspirin Allergy ANAPHYLAXIS Verified 04/02/18 14:49 Penicillins Allergy PT DOES Verified 04/02/18 14:49 NOT REMEMBER THE REACTION - Medications Medications: Current Medications Sodium Chloride (Sodium Chloride 0.9%) 1,000 mls @ 100 mls/hr IV .Q10H ARIC Last Admin: 04/03/18 00:52 Dose: 100 mls/hr Sodium Chloride (Sodium Chloride 0.9%) 250 mls @ 999 mls/hr IV .Q16M ARIC Last Admin: 04/03/18 02:30 Dose: 999 mls/hr Sodium Chloride (Sodium Chloride 0.9%) 250 mls @ 999 mls/hr IV .Q16M ARIC Meropenem 500 mg/ Sodium (Chloride) 50 mls @ 100 mls/hr IVPB Q12 ARIC PRN Reason: Protocol Stop: 04/12/18 10:01 Phytonadione 10 mg/ Sodium (Chloride) 51 mls @ 100 mls/hr IV ONCE ONE Stop: 04/03/18 09:16 Pantoprazole Sodium (Protonix Inj) 40 mg IVP Q12 ARIC Physical Exam - Constitutional Appears: No Acute Distress, Other (jaundice) - Head Exam Head Exam: ATRAUMATIC, NORMOCEPHALIC - Eye Exam Eye Exam: EOMI, Scleral icterus Pupil Exam: PERRL - ENT Exam ENT Exam: Mucous Membranes Moist - Respiratory Exam Respiratory Exam: NORMAL BREATHING PATTERN - Cardiovascular Exam Cardiovascular Exam: REGULAR RHYTHM - GI/Abdominal Exam GI & Abdominal Exam: Distended, Normal Bowel Sounds, Soft, Tenderness. absent: Firm, Guarding, Hernia, Rebound, Rigid Additional comments: scattered ecchymosis which patient and family states are from previous admission due to coumadin overdose - Extremities Exam Extremities exam: Positive for: normal capillary refill, pedal edema (bilateral) , pedal pulses present - Back Exam Back exam: absent: CVA tenderness (L), CVA tenderness (R) - Neurological Exam Neurological exam: Alert, CN II-XII Intact, Oriented x3 - Psychiatric Exam Psychiatric exam: Normal Affect, Normal Mood - Skin Skin Exam: Dry, Warm Additional comments: jaundice Results - Vital Signs Recent Vital Signs: Last Vital Signs Temp 97.7 F 04/02/18 20:21 Pulse 104 H 04/03/18 07:30 Resp 16 04/03/18 07:30 BP 80/44 L 04/03/18 07:30 Pulse Ox 91 L 04/03/18 07:30 - Labs Result Diagrams: 04/03/18 06:00 04/03/18 06:00 Labs: Laboratory Results - last 24 hr 04/02/18 04/02/18 04/03/18 19:32 19:32 06:00 WBC 13.5 H RBC 3.63 Hgb 11.8 L Hct 31.8 L MCV 87.6 MCH 32.5 MCHC 37.1 H RDW 17.6 H Plt Count 149 MPV 10.9 Gran % 78.4 H Lymph % (Auto) 10.1 L Wilson % (Auto) 11.5 H Eos % (Auto) 0.0 L Baso % (Auto) 0.0 Gran # 10.61 H Lymph # (Auto) 1.4 Wilson # (Auto) 1.6 H Eos # (Auto) 0.0 Baso # (Auto) 0.00 pCO2 pO2 86 H HCO3 ABG pH ABG Total CO2 ABG O2 Saturation ABG Base Excess ABG Potassium VBG pH 7.27 L VBG pCO2 33.0 L VBG HCO3 15.2 L VBG Total CO2 16.2 L VBG O2 Sat (Calc) 98.9 H VBG Base Excess -10.6 L VBG Potassium 3.9 Sodium 139.0 Chloride 110.0 H Glucose 96 Lactate 1.7 FiO2 21.0 Potassium Carbon Dioxide Anion Gap BUN Creatinine Est GFR ( Amer) Est GFR (Non-Af Amer) Random Glucose Calcium Phosphorus Magnesium Total Bilirubin Direct Bilirubin AST ALT Alkaline Phosphatase Total Protein Albumin Globulin Albumin/Globulin Ratio Arterial Blood Potassium Venous Blood Potassium 3.9 Urine Color Dark yellow Urine Appearance Slight-cloudy Urine pH 6.5 Ur Specific Nipomo 1.025 Urine Protein 100 H Urine Glucose (UA) 250 H Urine Ketones Trace H Urine Blood Large H Urine Nitrate Positive H Urine Bilirubin Large H Urine Urobilinogen 1.0 H Ur Leukocyte Esterase Negative Urine RBC 25 - 30 Urine WBC 1 - 3 Ur Epithelial Cells 0 - 2 Amorphous Sediment Few Urine Bacteria Many Coarse Granular Casts Trace H Urine Other Uyeast 04/03/18 04/03/18 06:00 07:00 WBC RBC Hgb Hct MCV MCH MCHC RDW Plt Count MPV Gran % Lymph % (Auto) Wilson % (Auto) Eos % (Auto) Baso % (Auto) Gran # Lymph # (Auto) Wilson # (Auto) Eos # (Auto) Baso # (Auto) pCO2 24 L pO2 96.0 HCO3 12.4 L ABG pH 7.32 L ABG Total CO2 13.1 L ABG O2 Saturation 99.0 H ABG Base Excess -11.8 L ABG Potassium 3.7 VBG pH VBG pCO2 VBG HCO3 VBG Total CO2 VBG O2 Sat (Calc) VBG Base Excess VBG Potassium Sodium 143 141.0 Chloride 112 H 114.0 H Glucose 89 Lactate 0.9 FiO2 21.0 Potassium 4.2 Carbon Dioxide 14 L Anion Gap 21 H BUN 69 H Creatinine 5.0 H Est GFR ( Amer) 14 Est GFR (Non-Af Amer) 11 Random Glucose 94 Calcium 7.2 L Phosphorus 6.7 H Magnesium 2.1 Total Bilirubin 34.7 H* Direct Bilirubin TEST NOT PERFORMED AST 89 H ALT 81 H Alkaline Phosphatase 369 H Total Protein 6.3 Albumin 2.9 L Globulin 3.5 Albumin/Globulin Ratio 0.8 L Arterial Blood Potassium 3.7 Venous Blood Potassium Urine Color Urine Appearance Urine pH Ur Specific Nipomo Urine Protein Urine Glucose (UA) Urine Ketones Urine Blood Urine Nitrate Urine Bilirubin Urine Urobilinogen Ur Leukocyte Esterase Urine RBC Urine WBC Ur Epithelial Cells Amorphous Sediment Urine Bacteria Coarse Granular Casts Urine Other Assessment & Plan - Assessment and Plan (Free Text) Assessment: 77 M with hypotension, coagulopathy and obstructive jaundice likely secondary to CBD stricture and cholangitis Plan: -4 units FFP -Vitamin K -Repeat INR, 3.35 -Monitor BP (MAP) -f/u PT/INR -Correct coagulopathy before central line insertion -Discussed with Dr. Davonte Spring PGY2
[2018-04-03 09:13] LABS: INR 3.35 (0.93-1.08); PARTIAL THROMBOPLASTIN TIME 38.5 Seconds (25.1-36.5); PROTHROMBIN TIME 39.5 SECONDS (9.4-12.5)
--- NOTE | 2018-04-03 09:20 | CARD ---
APPROVED REPORT EKG Measurement Heart [id number] <Conclusion> Atrial fibrillation Low voltage QRS NSSTW changes No change
[2018-04-03] MEDS: Meropenem 500 MG in Sodium Chloride 0.9% 50 ML IVPB SCH ×2 (09:39→22:46)
--- NOTE | 2018-04-03 10:27 | PN ---
DATE: 04/03/2018 MANAGER AEROSPACE NOTE SUBJECTIVE: The patient is resting in bed, has no complaints of any pain, completely oriented. Continues to require IV fluids to maintain appropriate blood pressure. The patient has no nausea or vomiting. No diarrhea. No chest pain or abdominal pain. No complaints of shortness of breath. PHYSICAL EXAMINATION: VITAL SIGNS: Physical exam note that his temperature is 97.7, his pulse is 104, respirations of 16 and BP is 80/44. SKIN: Warm and dry. HEENT: Head atraumatic, normocephalic. Eyes reactive to light. Ear, nose and throat seemed to be within normal limits. NECK: Supple. No JVD. No thyroid enlargement. No lymph nodes. HEART: Regular rate and rhythm. Normal S1, S2, but mildly tachycardic. LUNGS: Reveal good breath sounds bilaterally. ABDOMEN: Soft. Decreased bowel sounds. GENITALIA AND RECTAL: Deferred. MUSCULOSKELETAL: No joint deformities. EXTREMITIES: Reveal trace lower extremity edema. NEUROLOGICAL: He seemed to be grossly intact. LABORATORY DATA: As far as his laboratories are concerned, the patient's arterial blood gas reveals a pH of 7.32, pCO2 of 24, pO2 of 96. His white count is 13.5, hemoglobin is 11.8, hematocrit 31.8 with platelets of 149,000. The patient's sodium is 143, potassium 4.2, chloride 112, CO2 of 14 with a BUN of 69, creatinine of 5 and glucose of 94. The patient's total bilirubin is 34.7 with AST of 89, ALT of 81 and an alkaline phosphatase of 369. IMPRESSION: As far as my impression, this patient has obstructive jaundice with possible sepsis and is noted to be hypotensive. He has metabolic acidosis, a pancreatic mass as well as acute renal insufficiency and possible dehydration. The patient has a history of atrial fibrillation, congestive heart failure and noted gastrointestinal bleed secondary to coagulopathy due to Coumadin toxicity. PLAN: As far as our plan, we will continue with IV fluid support. Monitor his blood pressure closely. The patient has been changed from aztreonam and is now getting meropenem, is getting IV fluids of normal saline at 100 mL an hour. He is being evaluated by Infectious Disease as well as Cardiology and GI and Renal. We will continue to follow closely and treat aggressively along with the other consultants and the primary care doctor. Amos Nelson MD [facility] # [id number]
--- NOTE | 2018-04-03 11:31 | CON ---
DATE: 04/02/2018 HISTORY OF PRESENT ILLNESS: This patient was seen and evaluated earlier. A 77-year-old patient with the past medical history of AFib, CHF, recently discharged from the hospital with a diagnosis of pancreatic mass, obstructive jaundice, was admitted to the endoscopy unit initially for ERCP, endoscopic ultrasound evaluation and possible biopsy of the pancreatic mass. The patient was found to be hypotensive, systolic blood pressure in the range of 60, was sent to the emergency room and procedure was canceled. The patient was found to be deeply jaundiced. The patient was fluid resuscitated, was admitted to the ICU with diagnoses of sepsis and multisystem organ failure. PAST MEDICAL HISTORY: The patient's other past medical history significant as above. ALLERGIES: HE IS ALLERGIC TO ASPIRIN AND ALSO QUESTIONABLE ALLERGY TO PENICILLIN. FAMILY HISTORY: Noncontributory. SOCIAL HISTORY: Positive for smoking, alcohol socially. REVIEW OF SYSTEMS: Positive as above. The patient with complaints of weakness, deeply jaundiced, AFib. Other 12-point systems reviewed. PHYSICAL EXAMINATION VITAL SIGNS: Temperature is 99.7, blood pressure 67 /39, pulse 89, respiration is 17, O2 saturation of 97%. HEENT: Deeply jaundiced. NECK: Supple. HEART: S1, S2, irregular. LUNGS: Bilateral air entry present. ABDOMEN: Softly distended. Liver edge palpable. EXTREMITIES: Bilateral edema present. LABORATORY DATA: Hemoglobin 12.7, hematocrit 34.6, WBC count 13.1, platelets 159. Chemistry showed BUN 65, creatinine 4.8, total bilirubin 35.6, alkaline phosphatase 410. The patient had MRCP done on 03/25/2018, which showed extrahepatic biliary dilation and with change in the caliber of the CBD distally suggestive of possible obstruction in that area. The patient had a CT scan of the abdomen and pelvis done earlier which showed pancreatic head mass ill-defined, approximately 3 cm. Dilation of distal common bile duct noticed measuring up to 16 mm gallstones noticed with also distended gallbladder, left adrenal mass. IMPRESSION: This is a 77-year-old patient with history of atrial fibrillation, congestive heart failure, coronary artery disease, admitted, recently discharged from the hospital with extrahepatic biliary dilatation and CT shows possible 3 cm pancreatic mass. Gallstones. No CBD stone. The patient now has acute renal failure , elevated WBC and hypotension, sepsis. The patient also has renal acute kidney injury. RECOMMENDATIONS: I would recommend: 1. Follow up with the cultures. 2. IV fluids. 3. IV antibiotics. 4. The patient would continue the antibiotics, follow up of the cultures. The patient need need PTC with initial IR intervention When the patient is more optimized and stable, we will consider ERCP later . 5. Correction of coagulopathy Thank you very much for allowing us to participate in the care of your patient. We will continue to closely follow up of care and suggest further management based on the clinical course. The patient was also found to be coagulopathic which also need to be corrected. Paloma Hood MD MTDD
--- NOTE | 2018-04-03 14:33 | CON ---
DATE: 04/03/2018 REASON FOR CONSULTATION: Hypotension pre-ERCP. HISTORY OF PRESENT ILLNESS: This is a 77-year-old man known to me, admitted with hypotension. He was scheduled for an ERCP yesterday, but was found to be hypotensive, weak and not feeling well. He was sent to the emergency room with a very low blood pressure. He was given IV fluids, he is now in the Intensive Care Unit. His most recent blood pressure is in the 80s and 90s systolic after several liters of IV fluids. He felt weak. There was no chest pain or shortness of breath. There was some dyspnea on exertion. There was no orthopnea, PND, syncope, presyncope, lightheadedness, dizziness or vertigo. There was no fever, chills, cough, sputum production or hemoptysis. There was no abdominal pain, nausea, vomiting, diarrhea, constipation or melena. He was found to have obstructive jaundice recently and is undergoing GI evaluation. CT scan suggested a mass in the head of the pancreas. ERCP was planned. He had chronic cardiac problems including cardiomyopathy with left ventricular ejection fraction about 30%. He has mild coronary artery disease, had cath in 2013. He has chronic atrial fibrillation. He was on warfarin until recently when he was found to have coagulopathy and GI bleeding. He is a former cigar smoker. He has a history of alcohol use in the past. He has a family history of coronary artery disease. He is obese. There is no history of rheumatic fever, myocardial infarction, angina, congestive heart failure, diabetes, stroke or TIA. MEDICATIONS AT THE TIME OF ADMISSION: Include Coreg, lisinopril and warfarin which was on hold for the ERCP and because of recent coagulopathy and liver disease. ALLERGY: HE NOTES AN ALLERGY TO ASPIRIN AND PENICILLIN. SOCIAL HISTORY: He lives at home with his . He is retired. He is ambulatory. He no longer smokes. FAMILY HISTORY: Notable for coronary artery disease. REVIEW OF SYSTEMS: The 10-point review of systems is, otherwise, unremarkable except as noted above. PHYSICAL EXAMINATION: GENERAL: He is a well-developed obese male, lying in bed in the Intensive Care Unit in no acute distress. VITAL SIGNS: Notable for sinus rhythm, the sinus tachycardia at 96 to 104 beats per minute. Blood pressure 80/44, respirations 16, O2 sat 96 to 97%. HEENT: Revealed no neck vein distention. He is jaundiced. LUNGS: Lung newberry are clear throughout. HEART: Examination revealed distant heart sounds. Normal first and second heart sounds. PMI not palpable. ABDOMEN: Obese, soft, benign. Bowel sounds present. No mass, organomegaly, tenderness, rebound or guarding. No CVA tenderness. No palpable abdominal aortic aneurysm. EXTREMITIES: Exam revealed no cyanosis. There is chronic edema and chronic skin changes. NEUROLOGICAL: He is awake, alert and oriented. PSYCHIATRIC: Normal as to mood and affect. SKIN: Warm and dry. No rash or cellulitis. LABORATORY AND IMAGING: EKG demonstrates atrial fibrillation, low voltage, poor R wave progression, nonspecific S-T wave changes. No change from his previous EKG. Chest x-ray reveals no active disease. White count 13,500, hemoglobin 11.8, hematocrit 31.8. Platelet count normal. PT 31.8, INR 2.73. PTT 37.9. Blood gases are noted. Electrolytes unremarkable. BUN 65, creatinine 5. Magnesium 2.1. Bilirubin 35. LFTs abnormal. Ammonia 22. CK 78. Troponin less than 0.01. BNP 9760. Urinalysis is noted. ASSESSMENT: This is 77-year-old man with obstructive jaundice, undergoing evaluation who presents with hypotension following preparation for endoscopic retrograde cholangio-pancreatography and poor appetite. He has received IV fluids. His blood pressure is improved although still hypotensive. He has been cultured. He is getting antibiotics. He has coagulopathy, but no evidence of bleeding at this time. He should be considered for vitamin K treatment to correct coagulopathy. I will review his old records. We are holding Coreg and lisinopril. We are holding warfarin. He is getting antibiotics, IV fluids. He is having a GI followup. He is having an ID evaluation. Cultures are pending. I will follow along with you. He will also need a Renal evaluation. We will monitor I's and O's. Check stool for occult blood. I will make additional recommendations based on his clinical course. Jayme Cohen MD RAEANN
[2018-04-03 15:43] LABS: INR 1.75 (0.93-1.08); PROTHROMBIN TIME 20.2 SECONDS (9.4-12.5)
[2018-04-03 15:44] LABS: PARTIAL THROMBOPLASTIN TIME 32.8 Seconds (25.1-36.5)
--- NOTE | 2018-04-03 17:32 | CON ---
DATE: 04/03/2018 LOCATION: The patient is seen in the ICU, bed 3. CHIEF COMPLAINT: Weakness. HISTORY OF PRESENT ILLNESS: This is a 77-year-old male with past medical history of gallstones and cholelithiasis, who is scheduled for an elective ERCP and prior to the ERCP, the patient was found to be hypotensive and the patient admitted because of hypotension. He complained of weakness and mild shortness of breath, low-grade fevers. No chills, no chest pain. He denied any abdominal pain. No nausea or vomiting. No headaches or blurred vision. No dysuria or frequency. PAST MEDICAL HISTORY: Significant for atrial fibrillation, congestive heart failure, GI bleed secondary to Coumadin toxicity in the past, cholelithiasis, and he has hyperbilirubinemia. PAST SURGICAL HISTORY: Significant for cardiac catheterization. ALLERGIES: THE PATIENT IS ALLERGIC TO ASPIRIN AND PENICILLIN. DOES NOT KNOW WHAT TYPE OF ALLERGY. The patient has low ejection fraction of 20% and morbid obesity with a BMI of 42. MEDICATIONS AT HOME: Included Coumadin, lisinopril, and carvedilol. PHYSICAL EXAMINATION: GENERAL: The patient is in bed. VITAL SIGNS: Temperature of 99.7, heart rate of 101, blood pressure was 65/40 with saturation of 94%, it was down to 89%. HEENT: Unremarkable. He is jaundiced. NECK: Supple. LUNGS: Decreased breath sounds. HEART: Normal S1, S2. ABDOMEN: Soft, nontender. No rebound or guarding. LABORATORY EXAMINATION: Reveals a white count of 13,800, hemoglobin of 12, platelets of 163, 79% granulocytosis. Coagulation is noted. INR of 2.64. Blood gases are reviewed. BUN of 65 and creatinine is 4.7, creatinine before that was 1 and that was only on 03/25/2018. The patient has a bilirubin of 35, AST is 92, ALT of 94, alk phos of 410. BNP of 9760 and lipase is 744. Urinalysis is noted. Toxicology is noted. Microbiology reveals blood cultures from February are negative. Urine cultures are negative. Dr. Osmel Duran's consultation note is reviewed. Emergency room chart is reviewed. Chest x-ray, no active disease. The patient had an echo on 03/25/2018, which showed an ejection fraction of 40% at that time, earlier one he had 25%. The patient also was seen by Dr. Marianne Wallace on consultation on 03/25/2018, her consultation from that is reviewed. She that the CAT scan of the abdomen revealed a possible pancreatic head mass. Imani Mcgarry' consultation is reviewed and Dr. Gomes's consultation is reviewed from 03/25. History and physical examination by Dr. Thompson on 03/25, is also reviewed. Dr. Gomes believes the patient has obstructive jaundice secondary to mass in the head of the pancreas. The patient had an MRCP on 03/25, severe intra and extrahepatic biliary dilatation and lack of visualization of a distal common bile duct, no evidence of a pancreatic mass, may represent post inflammatory stricture. The patient had a CAT scan of the abdomen and pelvis on 03/24, which suspect pancreatic head mass of 3 cm. 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 We will check on the pancultures, recommend Dr. Costa Vega to review the CAT scan from 03/24, and see if they can do a CAT scan directed biopsy of the pancreatic mass if in fact you can get toward or if even exist. We will make further recommendations once the cultures and once the patient is further stabilized. We will follow with you. Kojo Dominguez MD
[2018-04-03 19:30] LABS: HEMOGLOBIN 10.7 g/dL (14.0-18.0); MEAN CELL VOLUME 87.7 fl (80.0-105.0); MEAN CORPUSCULAR HEMOGLOBIN 32.2 pg (25.0-35.0); MEAN CORPUSCULAR HGB CONC 36.8 g/dl (31.0-37.0); MEAN PLATELET VOLUME 10.9 fl (7.0-11.0); RBC 3.32 10^6/uL (3.5-6.1); RED CELL DISTRIBUTION WIDTH 17.4 % (11.5-14.5); WHITE BLOOD COUNT 10.8 10^3/ul (4.5-11.0)
[2018-04-03 19:31] LABS: ALB/GLOB RATIO 0.8 (1.1-1.8)
[2018-04-03 19:34] LABS: INR 1.66 (0.93-1.08); PARTIAL THROMBOPLASTIN TIME 32.6 Seconds (25.1-36.5); PROTHROMBIN TIME 19.1 SECONDS (9.4-12.5)
[2018-04-03 19:58] VITALS: RESP 17
[2018-04-04 06:02] VITALS: BP 86/54; O2SAT 96
[2018-04-04 06:53] LABS: HEMOGLOBIN 10.7 g/dL (14.0-18.0); MEAN CELL VOLUME 87.5 fl (80.0-105.0); MEAN CORPUSCULAR HEMOGLOBIN 31.8 pg (25.0-35.0); MEAN CORPUSCULAR HGB CONC 36.3 g/dl (31.0-37.0); MEAN PLATELET VOLUME 10.9 fl (7.0-11.0); RBC 3.37 10^6/uL (3.5-6.1); WHITE BLOOD COUNT 11.6 10^3/ul (4.5-11.0)
[2018-04-04 06:55] LABS: INR 1.34 (0.93-1.08); PROTHROMBIN TIME 15.5 SECONDS (9.4-12.5)
--- NOTE | 2018-04-04 07:27 | CP.PCM.PN ---
Subjective - Date & Time of Evaluation Date of Evaluation: 04/04/18 Time of Evaluation: 07:00 - Subjective Subjective: Stable in CCU. BP still low. FFP/Vit K given. No CP or SOB V/S noted. AF 70s PE: Lungs: decreased BS at bases Cor: irreg, S1S2 Abd.: soft, obese Ext.: + edema Neuro.: alert I/O= 3982/660 Labs pending: INR = 1.32 BC X2 NG at 24 hrs. Objective - Vital Signs/Intake and Output Vital Signs (last 24 hours): Temp Pulse Resp BP Pulse Ox 98 F 76 17 86/54 L 96 04/04/18 04:00 04/04/18 05:59 04/04/18 05:59 04/04/18 06:00 04/04/18 05:59 Intake and Output: 04/04/18 04/04/18 06:59 18:59 Intake Total 1700 Output Total 30 Balance 1670 - Medications Medications: Current Medications Sodium Chloride (Sodium Chloride 0.9%) 1,000 mls @ 100 mls/hr IV .Q10H [facility] Last Admin: 04/03/18 12:02 Dose: 100 mls/hr Meropenem 500 mg/ Sodium (Chloride) 50 mls @ 100 mls/hr IVPB Q12 [facility] PRN Reason: Protocol Stop: 04/12/18 10:01 Last Admin: 04/03/18 22:46 Dose: 100 mls/hr Pantoprazole Sodium (Protonix Inj) 40 mg IVP Q12 ARIC Last Admin: 04/03/18 22:46 Dose: 40 mg - Labs Labs: 04/04/18 06:40 04/03/18 19:00 PT 15.5 SECONDS (9.4-12.5) H 04/04/18 06:40 INR 1.34 (0.93-1.08) H 04/04/18 06:40 APTT 32.6 Seconds (25.1-36.5) 04/03/18 19:00 Assessment and Plan - Assessment and Plan (Free Text) Assessment: Hypotension/Weak R/O Sepsis Obstructive jaundice, possible pancreatic mass Coagulopathy Acute renal insufficiency Stool + OB Chronic AF, was on warfarin, d/c'd for coagulopathy and GIB Mild CAD at cath 2013 CCM: LV ~ 30% Former Smoker H/O moderate ETOH Plan: Await AM labs. As per Intensivists, GI, Surgery, Int. radiology Renal Evaluation Central line planned > pressors as needed Percutaneous biliary drainage planned Continue in CCU. Monitor: labs, INRs, sats., I/O, H/H, renal function, etc. Will follow. Moderate increased cardiac risk for GI/Int. rad. procedures.
[2018-04-04 07:35] LABS: ALB/GLOB RATIO 0.9 (1.1-1.8); CALCIUM 6.9 mg/dL (8.4-10.5)
--- NOTE | 2018-04-04 09:00 | CP.PCM.PN ---
Subjective - Date & Time of Evaluation Date of Evaluation: 04/04/18 Time of Evaluation: 08:57 - Subjective Subjective: Surgery: Dr. Arauz Pt seen and examined. No acute overnight events. States he's feeling ok this morning and denies any abdominal pain. No other complaints at this time. Objective - Vital Signs/Intake and Output Vital Signs (last 24 hours): Temp Pulse Resp BP Pulse Ox 98 F 76 17 86/54 L 96 04/04/18 04:00 04/04/18 05:59 04/04/18 05:59 04/04/18 06:00 04/04/18 05:59 Intake and Output: 04/04/18 04/04/18 06:59 18:59 Intake Total 1700 Output Total 30 Balance 1670 - Medications Medications: Current Medications Sodium Chloride (Sodium Chloride 0.9%) 1,000 mls @ 100 mls/hr IV .Q10H [facility] Last Admin: 04/03/18 12:02 Dose: 100 mls/hr Meropenem 500 mg/ Sodium (Chloride) 50 mls @ 100 mls/hr IVPB Q12 ARIC PRN Reason: Protocol Stop: 04/12/18 10:01 Last Admin: 04/03/18 22:46 Dose: 100 mls/hr Pantoprazole Sodium (Protonix Inj) 40 mg IVP Q12 ARIC Last Admin: 04/03/18 22:46 Dose: 40 mg - Labs Labs: 04/04/18 06:40 04/04/18 06:40 PT 15.5 SECONDS (9.4-12.5) H 04/04/18 06:40 INR 1.34 (0.93-1.08) H 04/04/18 06:40 APTT 32.6 Seconds (25.1-36.5) 04/03/18 19:00 - Constitutional Appears: Well, No Acute Distress - Eye Exam Eye Exam: Scleral icterus - Respiratory Exam Respiratory Exam: NORMAL BREATHING PATTERN - Cardiovascular Exam Cardiovascular Exam: RRR - GI/Abdominal Exam GI & Abdominal Exam: Soft. 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 Davonte Mao, PGY-3
[2018-04-04 09:01] LABS: BILIRUBIN,DIRECT 32.5 mg/dL (0.0-0.4)
[2018-04-04] MEDS: Meropenem 500 MG in Sodium Chloride 0.9% 50 ML IVPB SCH (09:14)
[2018-04-04 09:36] VITALS: TEMP 97.6
[2018-04-04 11:22] VITALS: PULSE 82
--- NOTE | 2018-04-04 11:40 | PN ---
DATE: 04/04/2018 SUBJECTIVE: The patient is resting in bed. No complaints of shortness of breath, cough, wheezing, chest congestion. No abdominal pain or chest pain. No obvious bloody bowel movements, but his stool this morning was guaiac positive. The patient's hemoglobin is stable. He continues to have low blood pressure, but his MAP is in high 60s and we will continue with gentle IV fluid. PHYSICAL EXAMINATION: VITAL SIGNS: Physical exam note that his temperature is 98, his pulse is 76, respirations are 17 and BP is 86/54 with a MAP of 68. O2 saturation is 96%. HEENT: The patient's head is atraumatic, normocephalic. Eyes reactive to light. Ears, Nose and Throat seems to be within normal limits. NECK: Supple. No JVD. No thyroid enlargement or lymph nodes. HEART: Has regular rate and rhythm. Normal S1, S2. LUNGS: Reveal good breath sounds bilaterally. ABDOMEN: Soft, nontender. Normal bowel sounds, but obese. GENITALIA AND RECTAL: Deferred. MUSCULOSKELETAL: No joint deformities. EXTREMITIES: Reveal trace lower extremity edema. NEUROLOGIC: He seemed to be grossly intact. LABORATORY DATA: As far as his laboratories are concerned, his white count is 11.6, hemoglobin is 10.7, hematocrit 29.5 with platelets of 144,000. The patient's sodium is 145, potassium 4.1, chloride 113, CO2 of 13 with a BUN of 86 and creatinine of 6.2. The patient's glucose is 87. The patient's LFTs and alkaline phosphatase are elevated as well. Has a total bilirubin of 36.8. IMPRESSION AND PLAN: This patient has obstructive jaundice with possible sepsis and is noted to be hypotensive as well. He has metabolic acidosis and noted a pancreatic mass as well as acute renal failure and possible dehydration. The patient has a history of atrial fibrillation, congestive heart failure and GI bleed secondary to coagulopathy due to Coumadin toxicity. PLAN: As far as our plan, we will continue to support with IV fluids. Surgery has been consulted for a central line placement. The patient will continue with meropenem and is getting IV normal saline as well. The patient is being followed by Infectious Disease, Cardiology as well as Renal and GI. As talking to GI, he is scheduled for a stent placement to drain and evaluate obstructive jaundice in the morning with INR. He will continue with the Protonix and as stated above the IV fluids and the antibiotics. Amos Nelson MD
[2018-04-04] MEDS ORDERED: NOREPINEPHRINE BIT/0.9 % NACL 4 MG/250 ML BAG IV PRN (13:31)
[2018-04-04] MEDS ORDERED: NOREPINEPHRINE BIT/0.9 % NACL 8 MG/500 ML BAG IV PRN (13:41)
[2018-04-04] MEDS ORDERED: Norepinephrine 8 MG in Sodium Chloride 0.9% 500 ML IV SCH (14:00)
--- NOTE | 2018-04-04 14:08 | RAD ---
HISTORY: [facility] COMPARISON: 04/02/2018. FINDINGS: LUNGS: No active pulmonary disease. PLEURA: No significant pleural effusion identified, no pneumothorax apparent. CARDIOVASCULAR: Cardiomegaly. No evidence of acute, significant cardiovascular disease. OSSEOUS STRUCTURES: No significant abnormalities. VISUALIZED UPPER ABDOMEN: Normal. OTHER FINDINGS: Venous access catheter in satisfactory position. IMPRESSION: No pneumothorax following right IJ catheter placement. No significant interval change compared to the prior examination(s).
--- NOTE | 2018-04-04 14:26 | PN ---
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 Patient was also evaluated earlier and the dictation is not in the [facility] yet. Patient remained comfortable. Family was at bedside, deeply jaundiced. PHYSICAL EXAMINATION: VITAL SIGNS: Temperature is 97.6, blood pressure 86/54, respirations 17, O2 saturation 96. HEENT: Deeply jaundiced. NECK: Supple. HEART: S1 and S2 heard. LUNGS: Bilateral air entry present, reduced at the base. ABDOMEN: Softly distended. EXTREMITIES: Bilateral edema present. LABORATORY DATA: Hemoglobin 10.7, hematocrit 29.5, WBC is 11.6, platelets 144. BUN 86, creatinine 6.2, calcium 6.9, total bilirubin is gone up to 36.8. Coagulation, INR has come down to 1.34. IMPRESSION: This is a 77-year-old patient with a history of atrial fibrillation, coronary artery disease, congestive heart failure, initially presented to the Endoscopy Unit for endoscopic retrograde cholangiopancreatography and endoscopic ultrasound, found to be hypotensive, sent to the ER and admitted to the ICU with acute renal failure and worsening of the obstructive jaundice. Patient also has thought to be sepsis probably rule out biliary source. Patient now has worsening of the renal function. Coagulation now been corrected. The reasonable thing now is to consider percutaneous transhepatic cholangiography and optimized the patient come to the endoscopic retrograde cholangiopancreatography and endoscopic ultrasound after further optimization at a later date. We will request for Intervention Radiology consult with Dr. Costa Vega. Patient also needs Renal followup. Thank you very much for allowing us to participate in the care of the patient. Paloma Hood MD
--- NOTE | 2018-04-04 14:43 | PN ---
DATE: 04/04/2018 SUBJECTIVE: The patient is in the ICU, CCU 129, bed 3, had uneventful night. No fevers and no chills. PHYSICAL EXAMINATION: VITAL SIGNS: On exam, temperature is 98, blood pressure is 86/50, respiratory rate of 30, heart rate of 81. HEENT: Examination of HEENT is unremarkable. NECK: Supple. LUNGS: Have decreased breath sounds. HEART: Normal S1, S2. ABDOMEN: Soft, nontender. No organomegaly. No rebound or guarding. No masses. LABORATORY DATA: Laboratory examination reveals a white count of 11,600, hemoglobin of 10, platelets of 144. Chemistries reveals a BUN of 86. Creatinine is 6.2. Of note is that last month, the patient's creatinine was 1. The patient's bilirubin is up to 36, alk phos is 333 and microbiology reveals the blood cultures have no growth at 24 hours. Review of orders reveals the patient to be on meropenem, adjusted for renal failure. ASSESSMENT AND PLAN: A 77-year-old male with a history of gallstones, cholelithiasis, scheduled for an elective endoscopic retrograde cholangio-pancreatography. 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 Rule out pancreatic cancer. The patient with now acute kidney injury. The patient's creatinine from February has changed from 1, now up to creatinine of 6 and the PATIENT IS ALLERGIC TO PENICILLIN in recent hospitalization and the patient for possible biopsy of the pancreatic questionable mass. We will continue the meropenem. progress note from today is reviewed. 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 Dr. Jayme Cohen's progress note is reviewed. He writes the patient has obstructive jaundice, possibly pancreatic mass and the patient with acute kidney injury. progress note from yesterday is reviewed.. Dr. Mayank Spring's consultation from yesterday is reviewed. We will follow closely with you. We will check on the final cultures. Continue the meropenem. Kojo Dominguez MD [facility] # [id number]
--- NOTE | 2018-04-04 15:13 | PCM.SURG1 ---
Surgeon's Initial Post Op Note - Surgeon's Notes Surgeon: Dr. Arauz Academic Counselor: Dr. Mao PGY-3 Type of Anesthesia: Local Pre-Operative Diagnosis: Acute Kidney Injury Operative Findings: Informed consent was obtained with explanation of risks & benefits of the procedure. Pt was then preped & draped in a sterile manner. The R IJ was visualized under US guidance & the area was anesthetized with 5cc of 1 % lidocaine. An 18G introducer needle was then used to cannulate the R IJ under direct visualization. Once the needle was inserted & placement confirmed, a guidewire was advanced into the vein. An #11 scalpel was used to make a small incision over the wire, dialator was used to dialate the tract & trialysis catheter was then placed. The wire was removed and all ports had good venous return. All 3 ports were flushed with saline & catheter was secured in place with a sterile biopatch dressing. Pt tolerated the procedure well. Post procedure CXR showed good placement of the catheter & no pneumothorax. Post-Operative Diagnosis: Same Operation Performed: Placement of temporary R IJ trialysis catheter Specimen/Specimens Removed: none Estimated Blood Loss: EBL {In ML}: 10 Blood Products Given: N/A Drains Used: No Drains Post-Op Condition: Good Date of Surgery/Procedure: 04/04/18 Time of Surgery/Procedure: 15:15
--- NOTE | 2018-04-04 18:08 | CP.PCM.HP ---
History of Present Illness - History of Present Illness History of Present Illness: Pt. admitted from endoscopy, he was hypotensive. He presented for biliary stent placement . He was found to have pancreatic mass , obstructive jaundice. Bilirubin elevated to 34.0. he presented with acute renal failure with elevated creatinine 4.0. he is coagulopathic. No nausea, vomiting. Present on Admission - Present on Admission Any Indicators Present on Admission: No Review of Systems - Constitutional Constitutional: As Per HPI, Fatigue, Malaise, Weakness - EENT Eyes: absent: As Per HPI, Blind Spots, Blurred Vision, Change in Vision, Decreased Night Vision, Diplopia, Discharge, Dry Eye, Exophthalmos, Floaters, Irritation, Itchy Eyes, Loss of Peripheral Vision, Pain, Photophobia, Requires Corrective Lenses, Sees Flashes, Spots in Vision, Tunnel Vision, Other Visual Disturbances, Loss of Vision, Other Nose/Mouth/Throat: absent: As Per HPI, Epistaxis, Nasal Congestion, Nasal Discharge, Nasal Obstruction, Nasal Trauma, Nose Pain, Post Nasal Drip, Sinus Pain, Sinus Pressure, Bleeding Gums, Change in Voice, Dental Pain, Dry Mouth, Dysphagia, Halitosis, Hoarsness, Lip Swelling, Mouth Lesions, Mouth Pain, Odynophagia, Sore Throat, Throat Swelling, Tongue Swelling, Facial Pain, Neck Pain, Neck Mass, Other - Cardiovascular Cardiovascular: absent: As Per HPI, Acrocyanosis, Chest Pain, Chest Pain at Rest , Chest Pain with Activity, Claudication, Diaphoresis, Dyspnea, Dyspnea on Exertion, Edema, Irregular Heart Rhythm, Pain Radiating to Arm/Neck/Jaw, Leg Edema, Leg Ulcers, Lightheadedness, Orthopnea, Palpitations, Paroxysmal Nocturnal Dyspnea, Pedal Edema, Radiating Pain, Rapid Heart Rate, Slow Heart Rate, Syncope, Other - Gastrointestinal Gastrointestinal: As Per HPI - Genitourinary Genitourinary: absent: As Per HPI, Change in Urinary Stream, Difficulty Urinating, Dysuria, Flank Pain, Hematuria, Pyuria, Nocturia, Urinary Incontinence, Urinary Frequency, Urinary Hesitance, Urinary Urgency, Voiding Freq/Small Amts, Freq UTI, Hx Renal/Bladder Calculi, Hx /Renal Surgery, Bladder Distension, Other - Musculoskeletal Musculoskeletal: absent: As Per HPI, Abnormal Gait, Arthralgias, Atrophy, Back Pain, Deformity, Joint Swelling, Limited Range of Motion, Loss of Height, Muscle Cramps, Muscle Weakness, Myalgias, Neck Pain, Numbness, Radiating Pain into Limb, Stiffness, Tingling, Other - Integumentary Integumentary: absent: As Per HPI, Acne, Alopecia, Bleeding Lesions, Change in Hair, Change in Nails, Change in Pigmentation, Changing Lesions, Dry Skin, Erythema, Furuncle, Hirsutism, Lesions, New Lesions, Non-Healing Lesions, Photosensitivity, Pruritus, Rash, Skin Pain, Skin Ulcer, Sores, Striae, Swelling , Unusual Bruising, Wounds, Jaundice, Other - Neurological Neurological: absent: As Per HPI, Abnormal Gait, Abnormal Hearing, Abnormal Movements, Abnormal Speech, Behavioral Changes, Burning Sensations, Confusion, Convulsions, Disequilibrium, Dizziness, Numbness, Focal Weakness, Frequent Falls , Headaches, Lack of Coordination, Loss of Vision, Memory Loss, Paresthesias, Radicular Pain, Restless Legs, Sensory Deficit, Syncope, Tingling, Tremor, Vertigo, Weakness, Other Visual Disturbances, Other - Psychiatric Psychiatric: absent: As Per HPI, Abnormal Sleep Pattern, Anhedonia, Anxiety, Auditory Hallucinations, Behavioral Changes, Change in Appetite, Change in Libido, Confusion, Depression, Difficulty Concentrating, Hallucinations, Homicidal Ideation, Hopelessness, Irritability, Memory Loss, Mood Swings, Panic Attacks, Paranoia, Suicidal Ideation, Visual Hallucinations, Tactile Hallucinations, Other - Endocrine Endocrine: absent: As Per HPI, Change in Body Appearance, Change in Libido, Cold Intolorance, Deepening of Voice, Excessive Sweating, Fatigue, Flushing, Heat Intolorance, Increase in Ring/Shoe/Hat Size, Palpitations, Polydipsia, Polyphagia, Polyuria, Other - Hematologic/Lymphatic Hematologic: As Per HPI Past Patient History - Infectious Disease Hx of Infectious Diseases: None - Tetanus Immunizations Tetanus Immunization: Unknown - Past Social History Smoking Status: Current Some Days Smoker - CARDIAC Hx Cardiac Disorders: Yes Hx Cardia Arrhythmia: Yes Hx Circulatory Problems: No Hx Congestive Heart Failure: Yes Hx Heart Murmur: No Hx Heart Transplant: No Hx Hypercholesterolemia: Yes Hx Hypertension: Yes Hx Internal Defibrillator: No Hx Mitral Valve Prolapse: No Hx Pacemaker: No Hx Peripheral Edema: No Hx Peripheral Vascular Disease: No - PULMONARY Hx Respiratory Disorders: No Hx Asthma: No Hx Bronchitis: No Hx Chronic Obstructive Pulmonary Disease (COPD): No Hx Emphysema: No Hx Pneumonia: No Hx Respiratory Aspiration: No Hx Respiratory Tract Infection: No Hx Sleep Apnea: No Hx Tuberculosis: No - NEUROLOGICAL Hx Neurological Disorder: No Hx Alzheimer's Disease: No HX Cerebrovascular Accident: No Hx Dementia: No Hx Dizziness: No Hx Meningitis: No Hx Migraine: No Hx Parkinson's Disease: No Hx Seizures: No Hx Transient Ischemic Attacks (TIA): No - HEENT Hx HEENT Problems: No - RENAL Hx Chronic Kidney Disease: No - ENDOCRINE/METABOLIC Hx Endocrine Disorders: No - HEMATOLOGICAL/ONCOLOGICAL Hx Blood Disorders: No Hx AIDS: No Hx Anemia: No Hx Cancer: No Hx Chemotherapy: No Hx Cirrhosis: No Hx Hepatitis A: No Hx Hepatitis B: No Hx Hepatitis C: No Hx Human Immunodeficiency Virus (HIV): No Hx Metastesis: No Hx Shingles: No Hx Unexplained Bleeding: No - INTEGUMENTARY Hx Dermatological Problems: No - MUSCULOSKELETAL/RHEUMATOLOGICAL Hx Musculoskeletal Disorders: Yes Hx Arthritis: No Hx Back Pain: No Hx Degenerative Joint Disease: No Hx Falls: No Hx Fractures: No Hx Gout: No Hx Herniated Disk: No Hx Myasthenia Gravis: No Hx Osteoarthritis: Yes Hx Osteomyelitis: No Hx Osteoporosis: No Hx Rhabdomyolysis: No Hx Spinal Stenosis: No Hx Unsteady Gait: No - GASTROINTESTINAL Hx Gastrointestinal Disorders: Yes Hx Colostomy: No Hx Crohn's Disease: No Hx Diverticulitis: No Hx Gall Bladder Disease: Yes Hx Gastroesophageal Reflux: No Hx Ileostomy: No Hx Liver Failure: No Hx Pancreatitis: No HX Swallowing Problems: No Hx Ulcer: No - GENITOURINARY/GYNECOLOGICAL Hx Genitourinary Disorders: No - PSYCHIATRIC Hx Psychophysiologic Disorder: No Hx Substance Use: No - SURGICAL HISTORY Hx Surgeries: No Hx Amputation: No Hx Appendectomy: No Hx Cardiac Catheterization: Yes Hx Cholecystectomy: No Hx Coronary Stent: No Hx Gastric Bypass Surgery: No Hx Hysterectomy: No Hx Joint Replacement: No Hx Kidney Transplant: No Hx Liver Transplant: No Hx Mastectomy: No Hx Musculoskeletal Surgery: No Hx Open Heart Surgery: No Hx Orthopedic Surgery: No Hx Splenectomy: No Hx Valve Replacement: No - ANESTHESIA Hx Anesthesia Reactions: No Hx Malignant Hyperthermia: No Meds Allergies/Adverse Reactions: Allergies Allergy/AdvReac Type Severity Reaction Status Date / Time aspirin Allergy ANAPHYLAXIS Verified 04/02/18 14:49 Penicillins Allergy PT DOES Verified 04/02/18 14:49 NOT REMEMBER THE REACTION Physical Exam - Constitutional Appears: Chronically Ill - Head Exam Head Exam: ATRAUMATIC, NORMAL INSPECTION, NORMOCEPHALIC - Eye Exam Eye Exam: Scleral icterus - ENT Exam ENT Exam: Mucous Membranes Moist, Normal Exam - Neck Exam Neck exam: Positive for: Normal Inspection - Respiratory Exam Respiratory Exam: Clear to Auscultation Bilateral, NORMAL BREATHING PATTERN - Cardiovascular Exam Cardiovascular Exam: REGULAR RHYTHM, +S1, +S2 - GI/Abdominal Exam GI & Abdominal Exam: Normal Bowel Sounds, Soft - Extremities Exam Extremities exam: Positive for: normal inspection - Back Exam Back exam: NORMAL INSPECTION - Psychiatric Exam Psychiatric exam: Depressed - Skin Skin Exam: Dry, Pallor, Warm Results - Vital Signs Recent Vital Signs: Last Vital Signs Temp 97.6 F 04/04/18 09:36 Pulse 82 04/04/18 11:15 Resp 17 04/04/18 05:59 BP 86/54 L 04/04/18 06:00 Pulse Ox 96 04/04/18 05:59 - Labs Result Diagrams: 04/04/18 06:40 04/04/18 06:40 Labs: Laboratory Results - last 24 hr 04/03/18 04/03/18 04/03/18 16:30 19:00 19:00 WBC 10.8 RBC 3.32 L Hgb 10.7 L Hct 29.1 L MCV 87.7 MCH 32.2 MCHC 36.8 RDW 17.4 H Plt Count 147 MPV 10.9 PT 19.1 H INR 1.66 H APTT 32.6 Sodium Potassium Chloride Carbon Dioxide Anion Gap BUN Creatinine Est GFR ( Amer) Est GFR (Non-Af Amer) Random Glucose Calcium Phosphorus Magnesium Total Bilirubin Direct Bilirubin AST ALT Alkaline Phosphatase Total Protein Albumin Globulin Albumin/Globulin Ratio Stool Occult Blood Positive H 04/03/18 04/04/18 04/04/18 19:00 06:40 06:40 WBC 11.6 H RBC 3.37 L Hgb 10.7 L Hct 29.5 L MCV 87.5 MCH 31.8 MCHC 36.3 RDW 18.0 H Plt Count 144 MPV 10.9 PT INR APTT Sodium 144 145 Potassium 4.1 4.1 Chloride 112 H 113 H Carbon Dioxide 14 L 13 L Anion Gap 22 H 24 H BUN 76 H 86 H Creatinine 5.7 H 6.2 H Est GFR ( Amer) 12 11 Est GFR (Non-Af Amer) 10 9 Random Glucose 106 87 Calcium 7.0 L 6.9 L* Phosphorus 6.6 H Magnesium 2.0 Total Bilirubin 35.3 H* 36.8 H* Direct Bilirubin 32.5 H AST 86 H 82 H ALT 79 H 74 H Alkaline Phosphatase 323 H 333 H Total Protein 6.7 6.6 Albumin 3.0 3.0 Globulin 3.7 3.5 Albumin/Globulin Ratio 0.8 L 0.9 L Stool Occult Blood 04/04/18 06:40 WBC RBC Hgb Hct MCV MCH MCHC RDW Plt Count MPV PT 15.5 H INR 1.34 H APTT Sodium Potassium Chloride Carbon Dioxide Anion Gap BUN Creatinine Est GFR ( Amer) Est GFR (Non-Af Amer) Random Glucose Calcium Phosphorus Magnesium Total Bilirubin Direct Bilirubin AST ALT Alkaline Phosphatase Total Protein Albumin Globulin Albumin/Globulin Ratio Stool Occult Blood Assessment & Plan - Assessment and Plan (Free Text) Assessment: 1. Pancreatic mass, obstructive jaundice. percutaneous biliary drain planned. 2. sepsis : urine culture, blood culture sent. on IV antibiotics- meropenem. ID consult Dr. Cancino requested. 3. ARF : likely pre-renal. IV hydration NS at 80 cc/hr. zofran prn. 4. Hypotensive : ICU admission. started on pressors. 5. Leukocytosis, anemia . 6. Coagulopathic : related to liver dysfunction - vit k 10 mg daily x 3 doses. FFP planned for placement of IV line. condition critical, prognosis guarded. - Date & Time Date: 04/03/18 Time: 11:00
--- NOTE | 2018-04-04 18:56 | PN ---
DATE: 04/04/2018 FOLLOWUP NOTE SUBJECTIVE: He is resting comfortably in bed, in no complaints. He is anuric. Creatinine elevated to 6 today. Hemoglobin and hematocrit stable. Stool guaiac was positive. No complaints of chest pain or shortness of breath. Remains icteric. REVIEW OF SYSTEMS: As per HPI. Rest of 12-point review of systems reviewed negative. PHYSICAL EXAMINATION: GENERAL: Comfortable in bed, in no acute distress. VITAL SIGNS: Temperature 98, respiratory rate 18 per minute, blood pressure 86/50, MAP of 68, oxygen saturation 96%. HEENT: Icteric present. Deeply jaundiced. NECK: No lymphadenopathy. CHEST: Air entry present and equal bilaterally. No added sound. CARDIOVASCULAR: S1, S2 normal. No murmur, no gallop. ABDOMEN: Soft, nontender, obese. EXTREMITIES: No edema. NEUROLOGIC: Alert, oriented x3. No focal sensory motor deficit. LABORATORY DATA: White count 11.6, hemoglobin 10.7, hematocrit 29.5, platelets 144. Potassium 4.1, sodium 145, creatinine 6.2, glucose 87, bilirubin 36.8. MEDICATIONS: Meropenem every 12 hours, Levophed, Protonix IV, normal saline 100 mL an hour. ASSESSMENT: 1. Possible pancreatic cancer. 2. Obstructive jaundice. 3. Acute renal failure. 4. Coagulopathy. 5. Anemia, leukocytosis. 6. Sepsis. PLAN: He is anuric. Creatinine elevated to 6.0. Discussed with Dr. Thompson. He recommended tunnel catheter placement for dialysis and transfer to [facility] for initiation of dialysis as inpatient dialysis is not being done at [facility]. Discussed with Dr. Nelson at length. Discussed with the patient for transfer to [facility]. He is not happy about it, but he is agreeable. Son at bedside. Discussed the critical condition and urgent need of dialysis. Surgical team consulted for placement of catheter. Coagulopathy is better after FFP infusion yesterday. INR is 1.3. He will need percutaneous drain of biliary tract, which was planned for Thursday. He will get that procedure at [facility]. Dr. Nelson is contacting [facility] to facilitate transfer from ICU to ICU. Discussed with the staff nurse. Condition critical. Laurie Miles, MD [facility] # [id number] MTDGermaine
--- NOTE | 2018-04-05 08:39 | HP ---
CHIEF COMPLAINT AND HISTORY OF PRESENT ILLNESS: This is a 77-year-old male who has come into the hospital after he was unable to get endoscopy and ERCP. The patient was admitted to the hospital for an elective procedure by Dr. Hood, but the patient's blood pressure was low and had elevated INR, he was sent to the ICU for further evaluation and management. The patient has a recent diagnosis of obstructive jaundice secondary to a tumor that was seen on CAT scan. The patient wished to come as an outpatient on 03/29/[address] Cohen and the procedure was scheduled for 03/30/2018. The patient called my office and wanted to have a delay in the procedure and he spoke with Dr. Hood who was able to re-schedule him. The patient does have a history of atrial fibrillation, has been on anticoagulation. The patient has been having low blood pressure, blood pressure has been in the 80s. He also has elevated creatinine that has not improved. Patient denies any chest pain or shortness of breath, no headaches or dizziness. ALLERGIES: TO PENICILLIN. PAST MEDICAL HISTORY: 1. Atrial fibrillation. 2. Obstructive jaundice secondary to tumor. 3. Coagulopathy. 4. Congestive heart failure secondary to systolic dysfunction with EF of 20% to 25%. SOCIAL HISTORY: He was a smoker. 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 He occasionally drinks. FAMILY HISTORY: Father had lung cancer and at 65. Mother had coronary artery disease and at 73. PHYSICAL EXAMINATION: VITAL SIGNS: Temperature is 97.6, pulse of 74, blood pressure is 86/54, respirations 17, O2 saturation is 96%. GENERAL: The patient is lying in bed, flat, comfortable. HEENT: No oral lesion. Eyes, icteric sclerae. Moist mucosa. NECK: No JVD, adenopathy, or thyromegaly. CARDIOVASCULAR: S1 and S2, regular. No murmurs, rubs, or gallops. LUNGS: Clear to auscultation bilaterally. No wheeze, rales, or rhonchi. ABDOMEN: Bowel sounds are positive, soft, nontender and nondistended. EXTREMITIES: No cyanosis, clubbing. . SKIN: Yellowing of the skin. LABORATORY DATA: White count of 11.6, hemoglobin of 10.7. Creatinine is 6.2, bicarb of 13. The total bili is 36. INR is 1.34. ASSESSMENT: 1. Obstructive jaundice. 2. Acute kidney injury. 3. Congestive heart failure secondary to systolic dysfunction, stable. 4. Hypotension. 5. PENICILLIN ALLERGY. 6. Coagulopathy. PLAN: The patient is currently admitted to the ICU, he is critically ill. He has elevated INR. The patient has been given vitamin K. He has elevated creatinine. His total output over 24 hours has been 60 mL, yesterday it was 100. He just ate about 6 L of fluid over the last 48 hours. He is not going to have much improvement. I believe in the next 24 hours, he will almost likely need dialysis. He is agreeable. I spoke to the patient's and son at the bedside. The patient is going to be transferred to [facility] because there is no acute dialysis at [facility]. The patient is on IV fluids. He is on meropenem for antibiotics. He has blood cultures that have been ordered. He is going to have a central line as well as temporary dialysis catheter placed and be sent to the ICU at [facility]. I did speak to Dr. Aquino who has seen the patient today and also Dr. Nelson from the ICU. I spoke with the nursing joint supervisor to let us know about the transfer as well and I also spoke with the patient's nurse, Mahin, to update him. Dr. Arauz is supervising the placement of the catheter. Patient remains critically ill. Overall prognosis is guarded. Randal Thompson MD RAEANN
--- NOTE | 2018-04-05 08:49 | PN ---
DATE: 04/03/2017 SUBJECTIVE: This patient was seen and evaluated earlier. Discussed with the wild life photographer and also with nursing staff. The patient wants liquid diet. Denies any abdominal pain now. PHYSICAL EXAMINATION: VITAL SIGNS: Afebrile, blood pressure at the time of examination remains low at 82/60, heart rate 81, O2 saturation 93%. HEENT: Deeply jaundiced. NECK: Supple. HEART: S1 and S2 heard. Slightly reduced at the base. ABDOMEN: Distended. Could not appreciate any obvious tenderness. EXTREMITIES: Bilateral mild edema present. NEUROLOGIC: Alert and oriented, moves all the extremities. LABORATORY DATA: Hemoglobin 11.8, hematocrit 31.8, WBC 13.5, platelets 149. Chemistry showed a total bilirubin has slightly come down to 34.7, BUN 69, creatinine 5. INR is elevated to 3.35. IMPRESSION: 1. This 77-year-old patient admitted with worsening of the obstructive jaundice, suspected to have pancreatic mass. The patient was initially presented to the endoscopy unit for endoscopic ultrasound, endoscopic retrograde cholangio-pancreatography, and possible biliary stent placement. The patient was found to be hypotensive and systolic blood pressure was around 65. The patient was subsequently sent to the Emergency Room. Bilirubin has significantly elevated. The patient is also coagulopathic. Rule out sepsis. The patient is on antibiotics. Follow up of the cultures. 2. The patient is coagulopathic. The patient needs to be corrected before any biliary intervention and the patient has acute kidney injury, worsening of the renal function. Overall, the patient needs to be further optimized. The reasonable thing to consider is initial PTC. Once coagulopathy is corrected and optimized, we will request interventional radiologist for PTC. The patient needs to be intubated under general anesthesia for EUS and ERCP. The reasonable thing would be to consider the PTC and drainage and further improvement, then EUS and ERCP can be considered subsequently. We will discuss also with the interventional radiologist. He is on FFP to correct the coagulopathy. We will continue to closely follow up his care and suggest further management. The patient is started on a clear liquid diet. His other comorbidities include atrial fibrillation and coronary artery disease. Thank you very much for allowing us to participate in the care of your patient. Paloma Hood MD
--- NOTE | 2018-04-05 13:27 | PN ---
DATE: 04/04/2018 The patient seen on floor. The temperature is down. The blood pressure is running in the 90s. The abdomen is soft, nontender. White count is 11.6. The PT is down to 15. Bilirubin is up to . MRCP was done on 03/25/2018. CAT scan from 03/24/2018 shows a pancreatic head mass, very ill-defined, about 3 cm. There are gallstones, distended gallbladder. Jhoan Arauz MD
== END 2018-04-04 17:03 | disposition short-term general hospital (02) | DRG 871 ==
LOC: ED 14:38 → ERH 18:08 → CCU 20:01
PROVIDERS: ADMIT Internal Medicine Nephrology; ATTEND Internal Medicine Nephrology
PROC: 30233K1 Transfusion of Nonautologous Frozen Plasma into Peripheral Vein, Percutaneous Approach (ICD-10-PCS; 2018-04-03)
PROC: 05HM33Z Insertion of Infusion Device into Right Internal Jugular Vein, Percutaneous Approach (ICD-10-PCS; principal; 2018-04-04)
DX: A41.9 Sepsis, unspecified organism (principal); K83.1 Obstruction of bile duct; N17.9 Acute kidney failure, unspecified; I50.22 Chronic systolic (congestive) heart failure; I42.9 Cardiomyopathy, unspecified; Z68.41 Body mass index [BMI] 40.0-44.9, adult; E87.2 Acidosis; I48.2 Chronic atrial fibrillation; I11.0 Hypertensive heart disease with heart failure; E86.0 Dehydration; D64.9 Anemia, unspecified; I25.10 Atherosclerotic heart disease of native coronary artery without angina pectoris; K80.20 Calculus of gallbladder without cholecystitis without obstruction; E66.01 Morbid (severe) obesity due to excess calories; K86.9 Disease of pancreas, unspecified; E78.00 Pure hypercholesterolemia, unspecified; Z79.01 Long term (current) use of anticoagulants; Z88.0 Allergy status to penicillin; Z87.891 Personal history of nicotine dependence